=== PATIENT | female | born 1945 | race Caucasian/White ===

== ENCOUNTER 2018-06-05 10:26 | Emergency (ER) | payer OTHER, SELFPAY ==
[2018-06-05] VITALS (45 sets, daily range): BP systolic 89–183; BP diastolic 52–142; PULSE 79–95; RESP 12–24; TEMP 36.4–36.5; O2SAT 96–99
--- NOTE | 2018-06-05 10:34 | DI.COMBO_ITS ---
SYMPTOMS/DIAGNOSIS: CONFUSION, FALL, RT SIDED FACIAL DROOP, FATIGUE, COUGH, CRACKLES BASES AP AND LATERAL CHEST: There are no prior comparison exams. The heart size is normal. The aorta is mildly tortuous. The lungs appear clear. IMPRESSION: Negative chest x-ray. NONCONTRAST HEAD CT: Comparison is made with [id number]. There is no significant atrophy. There are old right basal ganglia lacunar infarcts. There is decreased attenuation in the white matter consistent with small vessel disease. No acute infarct, hemorrhage or mass is seen. There is no evidence of skull fracture. The sinuses and mastoid air cells appear clear. The orbits are unremarkable. IMPRESSION: Small vessel disease. No acute abnormality. NONCONTRAST HEAD CT AT 2:50 P.M. Comparison is made with the exam performed earlier the same day. Old right basal ganglia lacunar infarcts and white matter changes of small vessel disease are again noted. No acute infarct or acute hemorrhage is visible. The ventricles are unchanged in size. IMPRESSION: No acute abnormality.
--- NOTE | 2018-06-05 10:36 | W.ED.GENAD ---
Discharge Plan Disposition Patient Disposition: RAFIA WISDOM ([facility]) Condition: Stable Discharge Details Chief Complaint: Diabetes Clinical Impression: Acute non-ST elevation myocardial infarction (NSTEMI), Acute kidney injury Primary Care Provider: Edna Cortez ED Provider: Darci Reyes Home Meds and New Rx's Prescriptions: No Action Levemir U-100 Insulin 100 UNIT/1 ML solution 40 u SQ HS RF: 0 alum-mag hydroxide-simeth [Mag-Al Plus] 30 ML suspension 30 ml PO TID Qty: 1 RF: 2 esomeprazole magnesium 40 mg Capsule,Delayed Release(Dr/Ec) 1 cap PO DAILY RF: 0 Medical Decision Making This is a 73-year-old female who presents for 4 days of weakness. She has not been taking her insulin at home, she has not been eating and drinking well. She has been feeling notably fatigued. Past medical history is significant for type 2 diabetes taking 4 units of Lantus daily, as well as an intracranial subarachnoid hemorrhage in the past. Physical exam is relatively benign. Mucous membranes are dry and she does look dehydrated. Accu-Chek is elevated. No neurologic deficits at this time, no complaint of headache, no signs of impingement. Clinical exam is clinically inconsistent with intracranial bleed or severe stroke with no neurologic deficits. We will rehydrate the patient, evaluate for a potential source of her fatigue including a cardiac etiology or infectious etiology. We will rehydrate the patient reassess. 12:22 PM The patient's troponin is notably elevated, at 22. She developed has a mild elevation in her white count, renal function is slightly reduced with a creatinine of 1.79. She does show evidence of mild to moderate dehydration. We will rehydrate still. TSH is normal. EKG shows no evidence of STEMI. Notable Q waves in lead II, III, and aVF. I have concern that the patient has suffered a myocardial infarction in the recent past, I feel that this is the main reason for her fatigue. I did contact [facility] [place] and they do not have any room at this time. We did contact the [facility], I discussed the case with Dr. Solares the commercial airline pilot. He agrees with the assessment and plan. CT scan of the head is negative for any evidence of bleed or acute process. He does recommend starting heparin. We will heparinized the patient at this time. Patient will be transferred to the [facility] for definitive cardiology care. I have extensively reviewed the treatment plan with the patient. I have addressed all patient concerns at this time. I have also discussed the plan with the admitting physician and they agree with the current assessment and plan and have agreed to assume responsibility for the patient. All parties demonstrate verbal understanding and agreement with our assessment and plan at this time. EKG 10: 53 Rate 80, EKG interpretation is atrial flutter from the machine however on my review it appears to be sinus rhythm. Artifact is noted. Inverted T waves in V3 through V6, no ST depressions greater than 1 mm. No reciprocal elevations. Notable Q waves in lead II, III, and aVF. Review of EKG from 08/28/15 demonstrates similarly inverted T waves with mild less than 1 mm depression in V3 V4 V5 and V6. EKG 12: 12 Rate 86, sinus rhythm, WV 130, QTc 471, QRS 100, inverted T waves in V3 through V6. No significant ST depression. No ST elevation. Consistent Q waves in lead II, III, and aVF. FINDINGS: Brain: No evidence for acute hemorrhage. Lacunar change right thalamus, nonacute. Cerebral volume loss noted. Scattered areas of decreased attenuation in the deep periventricular white matter consistent with small vessel ischemic change. Ventricles: Normal. No ventriculomegaly. Bones/joints: Normal. No acute fracture. Sinuses: Normal as visualized. No acute sinusitis. Mastoid air cells: Normal as visualized. No mastoid effusion. Soft tissues: Normal. IMPRESSION: Senescent changes noted. No acute intracranial abnormality. COMPARISON: No relevant prior studies available. FINDINGS: Bones/joints: No evidence of fracture or dislocation. No joint effusion. Soft tissues: Mild soft tissue swelling over the lateral malleolus. IMPRESSION: No fracture or dislocation. Thank you for allowing us to participate in the care of your patient. Dictated and Authenticated by: Mariama Gamez MD HPI General Date/Time Provider Initiated Documentation: 06/05/18 10:34. HPI Narrative: This is a 73-year-old female with a past medical history of diabetes type 2, intracranial bleed 5-6 years ago, for which she takes insulin/Levemir 40 units daily, as well as Arredondo's esophagus, who presents today for fatigue, weakness, medical noncompliance. She has been brought in by a neighbor today. Per the patient and the neighbor the patient has not been taking her insulin, or eating or drinking well for the last 4-5 days. She has been notably fatigued. She has had a few falls over the last few days as well secondary to weakness and fatigue. She states that she still has her insulin she just has not been taking it, and cannot give a specific with reason why. She denies any fever or chills. She does admit to about cough. She denies any vomiting or diarrhea. She denies any headache, vision changes, numbness, tingling, chest pain, shortness of breath, neck pain, or abdominal pain. She denies any urinary frequency or dysuria. She has no other complaints at this time. No other modifying factors. Related Data Home Medications Medication Instructions Recorded Confirmed Levemir U-100 Insulin 40 u SQ HS 01/23/16 06/05/18 alum-mag hydroxide-simeth [Mag-Al 30 ml PO TID #1 btl 02/03/16 06/05/18 Plus] esomeprazole magnesium 1 cap PO DAILY 06/05/18 06/05/18 Previous Rx's Medication Instructions Recorded alum-mag hydroxide-simeth [Mag-Al 30 ml PO TID #1 btl 02/03/16 Plus] Allergies Allergy/AdvReac Type Severity Reaction Status Date / Time No Known Allergies Allergy Unverified 06/05/18 10:44 Review of Systems Review of Systems All systems reviewed & are unremarkable except as noted in HPI and below PFSH Medical History Cataracts, bilateral Diabetes Dysphagia Legally blind in right eye, as defined in [place] Subarachnoid hemorrhage retinal issue Surgical History Appendectomy EGD - IV Sedation (02/03/16) Extraction of cataract Social History Smoking/Tobacco Use Status: Never Exam Narrative Exam Narrative: 1.Const: Cachectic, thin, elderly appearing 2.Eyes: PERRL, no conjunctival injection, and symmetrical lids. 3.ENT: Atraumatic external nose and ears. Moist MM. Neck: Symmetric, trachea midline, No thyromegaly. There is no evidence of raccoon eyes, barrios sign, CSF rhinorrhea, mastoid tenderness, cranial crepitus, hemotympanum, exophthalmos, or hyphema. Patient demonstrates intact dentition with no signs of tooth avulsion or fracture, no signs of jaw deformity, no evidence of a LeFort's fracture, with an intact palate, nose and orbital region. There is no evidence of a nasal septal hematoma. No proptosis. Jaw closes symmetrically. Airway is clear. Patient demonstrates good movement of cervical neck. There is no nuchal rigidity, no nuchal tenderness. Patient is able to flex the neck without any difficulty or significant pain. Negative Kernig's and Brudzinski sign. 4.CVS: +S1/S2, No murmurs or gallops. Peripheral pulses 2+ and equal in all extremities. Brisk capillary refill in all extremities. 5.RESP: Unlabored respiratory effort. Minimal crackles in the bases bilaterally. No rhonchi or wheezes. 6.GI: Soft, Nontender/Nondistended, No hepatosplenomegaly. No guarding or rebound. 7.MSK: Normocephalic/Atraumatic, Extremities w/o deformity or ttp No cyanosis or clubbing, Normal movement of all extremities. No midline tenderness to palpation over the CTLS spine. Normal ROM in flexion, extension, side bend, and rotation. Patient has +5 out of 5 strength in the lower extremities in dorsiflexion and plantarflexion, knee flexion and extension, hip flexion and extension. There is +2 over 2 dorsalis pedis pulses bilaterally. There is normal sensation to the skin with light touch at the foot, knee, and hip. Normal saddle sensation. Good sensation over the deep sural nerve area bilaterally. Rectal exam deferred. Reflexes are +2 over 4 in the patellar reflex bilaterally. +5 out of 5 strength in the medial, ulnar, radial nerve distribution bilaterally in the hands as well as intact light touch sensation to these dermatomes on the hands 8.Skin: Warm, Dry. No rashes or lesions. 9.Neuro: mower mechanic II-XII grossly intact. Sensation grossly intact, no focal neurologic deficits. All 6 cardinal planes of vision are fully intact. No evidence of rotatory or vertical nystagmus. The patient demonstrated a normal [id number], good dexterity. There was no evidence of dysdiadochokinesia. Patient was able to ambulate without difficulty. There was no wide-based gait. Romberg, and jprw-qz-hzas are both normal on testing. Sensation was intact bilaterally as well as muscle strength bilaterally for all extremities. Patient was able to verbalize butter cup with no slurring, or miss pronunciation. 10.Psych: (AAO) x3. Appropriate mood and affect
--- NOTE | 2018-06-05 10:42 | ED.GENADUL_ITS ---
Discharge Plan Disposition Patient Disposition: RAFIA WISDOM ([facility]) Condition: Stable Discharge Details Chief Complaint: Diabetes Clinical Impression: Acute non-ST elevation myocardial infarction (NSTEMI), Acute kidney injury Primary Care Provider: Edna Cortez ED Provider: Darci Reyes Home Meds and New Rx's Prescriptions: No Action Levemir U-100 Insulin 100 UNIT/1 ML solution 40 u SQ HS RF: 0 alum-mag hydroxide-simeth [Mag-Al Plus] 30 ML suspension 30 ml PO TID Qty: 1 RF: 2 esomeprazole magnesium 40 mg Capsule,Delayed Release(Dr/Ec) 1 cap PO DAILY RF: 0 Medical Decision Making This is a 73-year-old female who presents for 4 days of weakness. She has not been taking her insulin at home, she has not been eating and drinking well. She has been feeling notably fatigued. Past medical history is significant for type 2 diabetes taking 4 units of Lantus daily, as well as an intracranial subarachnoid hemorrhage in the past. Physical exam is relatively benign. Mucous membranes are dry and she does look dehydrated. Accu-Chek is elevated. No neurologic deficits at this time, no complaint of headache, no signs of impingement. Clinical exam is clinically inconsistent with intracranial bleed or severe stroke with no neurologic deficits. We will rehydrate the patient, evaluate for a potential source of her fatigue including a cardiac etiology or infectious etiology. We will rehydrate the patient reassess. 12:22 PM The patient's troponin is notably elevated, at 22. She developed has a mild elevation in her white count, renal function is slightly reduced with a creatinine of 1.79. She does show evidence of mild to moderate dehydration. We will rehydrate still. TSH is normal. EKG shows no evidence of STEMI. Notable Q waves in lead II, III, and aVF. I have concern that the patient has suffered a myocardial infarction in the recent past, I feel that this is the main reason for her fatigue. I did contact [facility] and they do not have any room at this time. We did contact the [facility], I discussed the case with Dr. Solares the roof foreman. He agrees with the assessment and plan. CT scan of the head is negative for any evidence of bleed or acute process. He does recommend starting heparin. We will heparinized the patient at this time. Patient will be transferred to the [facility] for definitive cardiology care. I have extensively reviewed the treatment plan with the patient. I have addressed all patient concerns at this time. I have also discussed the plan with the admitting physician and they agree with the current assessment and plan and have agreed to assume responsibility for the patient. All parties demonstrate verbal understanding and agreement with our assessment and plan at this time. EKG 10: 53 Rate 80, EKG interpretation is atrial flutter from the machine however on my review it appears to be sinus rhythm. Artifact is noted. Inverted T waves in V3 through V6, no ST depressions greater than 1 mm. No reciprocal elevations. Notable Q waves in lead II, III, and aVF. Review of EKG from 08/28/15 demonstrates similarly inverted T waves with mild less than 1 mm depression in V3 V4 V5 and V6. EKG 12: 12 Rate 86, sinus rhythm, MN 130, QTc 471, QRS 100, inverted T waves in V3 through V6. No significant ST depression. No ST elevation. Consistent Q waves in lead II, III, and aVF. FINDINGS: Brain: No evidence for acute hemorrhage. Lacunar change right thalamus, nonacute . Cerebral volume loss noted. Scattered areas of decreased attenuation in the deep periventricular white matter consistent with small vessel ischemic change. Ventricles: Normal. No ventriculomegaly. Bones/joints: Normal. No acute fracture. Sinuses: Normal as visualized. No acute sinusitis. Mastoid air cells: Normal as visualized. No mastoid effusion. Soft tissues: Normal. IMPRESSION: Senescent changes noted. No acute intracranial abnormality. COMPARISON: No relevant prior studies available. FINDINGS: Bones/joints: No evidence of fracture or dislocation. No joint effusion. Soft tissues: Mild soft tissue swelling over the lateral malleolus. IMPRESSION: No fracture or dislocation. Thank you for allowing us to participate in the care of your patient. Dictated and Authenticated by: Mariama Gamez MD HPI General Date/Time Provider Initiated Documentation: 06/05/18 10:34 . HPI Narrative: This is a 73-year-old female with a past medical history of diabetes type 2, intracranial bleed 5-6 years ago, for which she takes insulin/Levemir 40 units daily, as well as Arredondo's esophagus, who presents today for fatigue, weakness, medical noncompliance. She has been brought in by a neighbor today. Per the patient and the neighbor the patient has not been taking her insulin, or eating or drinking well for the last 4-5 days. She has been notably fatigued. She has had a few falls over the last few days as well secondary to weakness and fatigue. She states that she still has her insulin she just has not been taking it, and cannot give a specific with reason why. She denies any fever or chills. She does admit to about cough. She denies any vomiting or diarrhea. She denies any headache, vision changes, numbness, tingling, chest pain, shortness of breath, neck pain, or abdominal pain. She denies any urinary frequency or dysuria. She has no other complaints at this time. No other modifying factors. Related Data Home Medications Medication Instructions Recorded Confirmed Levemir U-100 Insulin 40 u SQ HS 01/23/16 06/05/18 alum-mag hydroxide-simeth [Mag-Al 30 ml PO TID #1 btl 02/03/16 06/05/18 Plus] esomeprazole magnesium 1 cap PO DAILY 06/05/18 06/05/18 Previous Rx's Medication Instructions Recorded alum-mag hydroxide-simeth [Mag-Al 30 ml PO TID #1 btl 02/03/16 Plus] Allergies Allergy/AdvReac Type Severity Reaction Status Date / Time No Known Allergies Allergy Unverified 06/05/18 10:44 Review of Systems Review of Systems All systems reviewed & are unremarkable except as noted in HPI and below PFSH Medical History Cataracts, bilateral Diabetes Dysphagia Legally blind in right eye, as defined in [place] Subarachnoid hemorrhage retinal issue Surgical History Appendectomy EGD - IV Sedation (02/03/16) Extraction of cataract Social History Smoking/Tobacco Use Status: Never Exam Narrative Exam Narrative: 1.Const: Cachectic, thin, elderly appearing 2.Eyes: PERRL, no conjunctival injection, and symmetrical lids. 3.ENT: Atraumatic external nose and ears. Moist MM. Neck: Symmetric, trachea midline, No thyromegaly. There is no evidence of raccoon eyes, barrios sign, CSF rhinorrhea, mastoid tenderness, cranial crepitus, hemotympanum, exophthalmos, or hyphema. Patient demonstrates intact dentition with no signs of tooth avulsion or fracture, no signs of jaw deformity, no evidence of a LeFort's fracture, with an intact palate, nose and orbital region. There is no evidence of a nasal septal hematoma. No proptosis. Jaw closes symmetrically. Airway is clear. Patient demonstrates good movement of cervical neck. There is no nuchal rigidity, no nuchal tenderness. Patient is able to flex the neck without any difficulty or significant pain. Negative Kernig's and Brudzinski sign. 4.CVS: +S1/S2, No murmurs or gallops. Peripheral pulses 2+ and equal in all extremities. Brisk capillary refill in all extremities. 5.RESP: Unlabored respiratory effort. Minimal crackles in the bases bilaterally. No rhonchi or wheezes. 6.GI: Soft, Nontender/Nondistended, No hepatosplenomegaly. No guarding or rebound. 7.MSK: Normocephalic/Atraumatic, Extremities w/o deformity or ttp No cyanosis or clubbing, Normal movement of all extremities. No midline tenderness to palpation over the CTLS spine. Normal ROM in flexion, extension, side bend, and rotation. Patient has +5 out of 5 strength in the lower extremities in dorsiflexion and plantarflexion, knee flexion and extension, hip flexion and extension. There is +2 over 2 dorsalis pedis pulses bilaterally. There is normal sensation to the skin with light touch at the foot, knee, and hip. Normal saddle sensation. Good sensation over the deep sural nerve area bilaterally. Rectal exam deferred. Reflexes are +2 over 4 in the patellar reflex bilaterally. +5 out of 5 strength in the medial, ulnar, radial nerve distribution bilaterally in the hands as well as intact light touch sensation to these dermatomes on the hands 8.Skin: Warm, Dry. No rashes or lesions. 9.Neuro: media marketing coordinator II-XII grossly intact. Sensation grossly intact, no focal neurologic deficits. All 6 cardinal planes of vision are fully intact. No evidence of rotatory or vertical nystagmus. The patient demonstrated a normal [id number]-qdzctb, good dexterity. There was no evidence of dysdiadochokinesia. Patient was able to ambulate without difficulty. There was no wide-based gait. Romberg, and zfjz-[id number]-urfn are both normal on testing. Sensation was intact bilaterally as well as muscle strength bilaterally for all extremities. Patient was able to verbalize butter cup with no slurring, or miss pronunciation. 10.Psych: (AAO) x3. Appropriate mood and affect
[2018-06-05] MEDS: Normal Saline 1,000 ML 1000 ML IV (10:45)
[2018-06-05 10:56] LABS: Abs Immature Grans 0.03 k/cumm (0.0-0.09); Absolute Lymphocyte Count 1.07 k/cumm (1.2-3.4); Basophils % 0.1; HCT 46.2 % (36.0-46.0); HGB 16.1 g/dL (12.0-15.5); Immature Grans % 0.2; Lymphocytes % 6.6; Mean Corp. HGB Concentration 34.8 g/dL (32.0-36.0); Mean Corpuscular Hemoglobin 32.3 pg (27.0-33.0); Mean Corpuscular Volume 92.6 fL (80-95); Mean Platelet Volume 12.1 fL (8.0-11.0); Monocytes % 9.3; Neutrophils % 83.8; RBC 4.99 m/cumm (4.00-5.20); White Blood Cell Count 16.27 k/cumm (4.4-10.8)
[2018-06-05 10:59] LABS: Absolute Basophil Count 0.02 k/cumm (0.0-0.2); Absolute Monocyte Count 1.51 k/cumm (0.11-0.7); Absolute Neutrophil Count 13.63 k/cumm (1.2-6.7)
[2018-06-05 11:12] LABS: ALT 39 U/L (12-78); AST 86 U/L (15-37); Albumin 3.7 g/dL (3.4-5.0); Alkaline Phosphatase 50 U/L (46-116); Anion Gap 10.3 mmol/L (3-11); BUN 70 mg/dL (7-18); Bilirubin, Total 1.2 mg/dL (0.2-1.0); CO2 29.7 mmol/L (21.0-32.0); CREATININE 1.79 mg/dL (0.55-1.02); Calcium 10.1 mg/dL (8.5-10.1); Chloride 95 mmol/L (98-107); Estimated GFR 27.68 (mL/min/1.73m2); Glucose 355 mg/dL (70-100); Sodium 135 mmol/L (136-145)
[2018-06-05 11:19] LABS: Platelet Count 328 x1000/uL (130-400); TSH (W/Ref FT4) 1.54 uIU/mL (0.358-3.74)
[2018-06-05 11:20] LABS: Diff Comment Manual Differential; RBC Morphology Normal; Troponin I 22.95 ng/mL (0.00-0.06)
--- NOTE | 2018-06-05 12:10 | DI.VRAD_ITS ---
EXAM: CT Head Without Contrast EXAM DATE/TIME: 06/05/2018 10:36 AM CLINICAL HISTORY: 73 years old, female; Signs and symptoms; Other: Confusion, recent fall TECHNIQUE: Axial computed tomography images of the head/brain without contrast. All CT scans at this facility use at least one of these dose optimization techniques: automated exposure control; mA and/or kV adjustment per patient size (includes targeted exams where dose is matched to clinical indication); or iterative reconstruction. Coronal and sagittal reformatted images were created and reviewed. COMPARISON: CT HEAD WITHOUT CONTRAST 08/28/2015 3:44 PM FINDINGS: Brain: No evidence for acute hemorrhage. Lacunar change right thalamus, nonacute. Cerebral volume loss noted. Scattered areas of decreased attenuation in the deep periventricular white matter consistent with small vessel ischemic change. Ventricles: Normal. No ventriculomegaly. Bones/joints: Normal. No acute fracture. Sinuses: Normal as visualized. No acute sinusitis. Mastoid air cells: Normal as visualized. No mastoid effusion. Soft tissues: Normal. IMPRESSION: Senescent changes noted. No acute intracranial abnormality. COMMENT: Preliminary interpretation is based on receipt of 342 image(s). A final report will be issued subsequently. Dictated and Authenticated by: Clara Patiño MD. Ordering:RUBEN Bejarano MD
--- NOTE | 2018-06-05 12:13 | DI.VRAD_ITS ---
EXAM: XR Chest, 2 Views EXAM DATE/TIME: 06/05/2018 10:36 AM CLINICAL HISTORY: 73 years old, female; Signs and symptoms; Other: Fatique, cough, crackles in basees TECHNIQUE: XR of the chest, 2 views. COMPARISON: No relevant prior studies available. FINDINGS: Lungs: The lungs are hyperaerated and hyperlucent consistent with COPD. There is increase in the retrosternal airspace Pleural space: Unremarkable. No pleural effusion. No pneumothorax. Heart/Mediastinum: Heart size upper limits of normal. Vasculature: Mild aortic ectasia and atherosclerotic change. Bones/joints: Mild thoracic spondylosis. IMPRESSION: COPD without evidence for acute abnormality. COMMENT: Preliminary interpretation is based on receipt of 2 image(s). A final report will be issued subsequently. Dictated and Authenticated by: Clara Patiño MD. Ordering:RUBEN Bejarano MD
[2018-06-05] MEDS: Metoclopramide 10 MG/2 ML VIAL IVP (13:25)
[2018-06-05] MEDS: Aspirin 81 MG CHEW 324 MG CH (13:30)
[2018-06-05 14:20] LABS: INR 1.1 (0.9-1.1); PTT Activated 24.1 sec (21.0-31.4); Prothrombin Time 10.7 sec (9.3-11.0)
--- NOTE | 2018-06-05 15:00 | PDOC.ERCMPRO ---
Care Management Progress Note CM met with Suni at provider request. Suni reported feeling confident in managing her care needs in coordination with her PCP; Edna Cortez in the community. 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 KHANH agreed to connect with [facility] to request support in this avenue. CM faxed referral to [facility]: Niurka Herring for coordination support.
--- NOTE | 2018-06-05 15:03 | CMPROGNOTE_ITS ---
Care Management Progress Note CM met with Suni at provider request. Suni reported feeling confident in managing her care needs in coordination with her PCP; Edna Cortez in the community. 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 KHANH agreed to connect with [facility] to request support in this avenue. CM faxed referral to [facility]: Niurka Herring for coordination support.
--- NOTE | 2018-06-05 15:08 | DI.VRAD_ITS ---
EXAM: CT Head Without Contrast EXAM DATE/TIME: 06/05/2018 2:45 PM CLINICAL HISTORY: 73 years old, female; Signs and symptoms; Other: Right sided facial droop TECHNIQUE: Axial computed tomography images of the head/brain without contrast. All CT scans at this facility use at least one of these dose optimization techniques: automated exposure control; mA and/or kV adjustment per patient size (includes targeted exams where dose is matched to clinical indication); or iterative reconstruction. Coronal and sagittal reformatted images were created and reviewed. STROKE PROTOCOL was implemented. COMPARISON: CT Private^HEAD ROUTINE (Adult) 06/05/2018 11:37 AM FINDINGS: Brain: No evidence for acute intracranial hemorrhage. Cerebral volume loss noted. Scattered areas of decreased attenuation in the deep periventricular white matter consistent with small vessel ischemic change. Lacunar change right thalamus again seen. Ventricles: Normal. No ventriculomegaly. Bones/joints: Normal. No acute fracture. Sinuses: Normal as visualized. No acute sinusitis. Mastoid air cells: Normal as visualized. No mastoid effusion. Soft tissues: Normal. IMPRESSION: Senescent changes noted. No acute intracranial abnormality. COMMENT: Preliminary interpretation is based on receipt of 341 image(s). A final report will be issued subsequently. Dictated and Authenticated by: Clara Patiño MD. Ordering:RUBEN Bejarano MD
== END 2018-06-05 15:13 | disposition short-term general hospital (02) ==
PROVIDERS: Emergency Provider Student in an Organized Health Care Education/Training Program; PCP Nurse Practitioner
DX: I21.4 Non-ST elevation (NSTEMI) myocardial infarction (principal); N17.9 Acute kidney failure, unspecified; E11.9 Type 2 diabetes mellitus without complications; Z79.4 Long term (current) use of insulin
CPT/HCPCS: 36415; 36416; 80053; 82962; 93005; 96361; 96365; 96375; 99283; 70450; 71046; 81003; 84443; 84484; 85025; 85610; 85730; 93010; 99285; J2765

== ENCOUNTER 2018-06-15 13:05 | Outpatient (REF) | payer OTHER, SELFPAY ==
[2018-06-15 20:33] LABS: ALT 25 U/L (12-78); AST 14 U/L (15-37); Albumin 3.1 g/dL (3.4-5.0); Alkaline Phosphatase 40 U/L (46-116); Anion Gap 8.1 mmol/L (3-11); BUN 28 mg/dL (7-18); Bilirubin, Total 0.3 mg/dL (0.2-1.0); CO2 27.9 mmol/L (21.0-32.0); CREATININE 0.91 mg/dL (0.55-1.02); Calcium 9.1 mg/dL (8.5-10.1); Chloride 104 mmol/L (98-107); Glucose 179 mg/dL (70-100); Potassium 4.5 mmol/L (3.5-5.1); Sodium 140 mmol/L (136-145); Total Protein 6.4 g/dL (6.4-8.2)
== END 2018-06-15 13:25 ==
LOC: NCHCN 13:05
PROVIDERS: PCP Nurse Practitioner; Visit Provider Nurse Practitioner
DX: I25.2 Old myocardial infarction (principal)
CPT/HCPCS: 80053

== ENCOUNTER → 2018-09-14 09:17 | Outpatient (BNVA) | payer OTHER, SELFPAY | PROVIDERS: PCP Nurse Practitioner; Referring Provider Nurse Practitioner; Visit Provider Psychiatry & Neurology Neurology | DX: R69 Illness, unspecified (principal) ==

== ENCOUNTER 2018-10-13 11:52 | Emergency (ER) | payer OTHER, SELFPAY ==
[2018-10-13] VITALS (34 sets, daily range): BP systolic 128–204; BP diastolic 52–130; PULSE 69–92; RESP 13–26; TEMP 36.6; O2SAT 95–99
--- NOTE | 2018-10-13 12:14 | W.ED.GENAD ---
Discharge Plan Disposition Patient Disposition: [facility] Condition: Stable Discharge Details Chief Complaint: Trauma Clinical Impression: UTI (urinary tract infection), Altered mental status, Laceration of lip, Dental trauma, Abnormal ECG Primary Care Provider: Edna Cortez ED Provider: June Cool Home Meds and New Rx's Prescriptions: No Action metformin 500 mg tablet 500 mg PO BID RF: 0 atorvastatin 80 mg tablet 80 mg PO DAILY RF: 0 esomeprazole magnesium [Nexium] 40 mg capsule,delayed release(DR/EC) 40 mg PO DAILY RF: 0 aspirin 81 mg tablet 81 mg PO DAILY RF: 0 Discharge Data Discharge Date/Time-TO BE ENTERED AT DEPARTURE: 10/13/18 20:27 Medical Decision Making 73-year-old female with a history of diabetes who presents status post unwitnessed fall. Blood pressure mildly hypertensive, otherwise vitals within normal limits. Patient noted to have 2 upper lip lacerations, one extensive near the vermilion border. Dental trauma noted to #9 and #10 teeth. No obvious head, neck, chest, abdomen, back or extremity trauma. Lungs clear to auscultation. Abdomen soft nontender. Moving all extremities. Tetanus up-to-date. Patient is oriented to person and not place or time. Patient cannot recall the events of today. Due to unknown history and whether patient has dementia or if this is an acute altered mental status due to an acute medical cause, will place an IV, bolus IV fluids, labs, urinalysis, CT head/cervical spine and facial bones. Sister now present here and states that patient is usually oriented x3. Patient appears more lucid but still not able to answer questions regarding fall. EKG notes a rate of 72, sinus, T wave inversion in V4 through V6 which is been seen in previous, but with new T wave inversion and 2 3 and aVF. 1300 --CTs reviewed with radiologist - unclear whether there is an upper maxilla fracture. Will push images to [facility] plastics or ENT. CT head and cervical spine negative. Chest x-ray and pelvis x-ray negative. 1343 --discussed with [facility] plastics who reviewed CT images -there is noted a longitudinal fracture #10 and impaction of #9. No other obvious additional fractures noted. No indication for emergent transfer and patient can follow-up with her dentist as an outpatient. They can also follow-up with patient in 1 week. Recommend Augmentin for antibiotic coverage. 1430 --labs reviewed. White blood cell count 6. Magnesium 1.3. Troponin negative. Urinalysis notes UTI. Will give a dose of Rocephin. 1500 --patient seems more oriented at this time, but with confusion on arrival, UTI, and EKG changes, will admit for concern for possible syncope. Discussed with hospitalist, no beds available here. 1550 --discussed with [facility] -no cardiology or echocardiogram capability available so will not accept patient. 1645 --discussed with [facility] Dr. Desir -accepts patient for transfer. Requesting second troponin. If negative, can transfer. 1800 --second troponin negative. Due to high acuity and high census in ED, general surgery Dr. Olivares sutured lip laceration. Medical Records Medical records reviewed: Yes I reviewed the patient's medical records. Imaging Data Radiologic Study: Radiologist's impression: SEMI-ERECT AP AND LATERAL CHEST: The lungs are well expanded and free of infiltrate. There is no pleural effusion. The cardiovascular structures are intact. SUMMARY: No evidence of acute cardiopulmonary disease. AP PELVIS: No pelvic or hip fracture is demonstrated. CERVICAL SPINE CT: The study was carried out according to the usual protocol. The vertebral bodies are intact. Degenerative changes involving the mid and lower cervical spine are evident. The neural canal is widely patent throughout. The posterior elements are intact. Facet joint DJD is noted. The odontoid is intact and is closely applied to the anterior arch of C 1. The prevertebral soft tissues are unremarkable. SUMMARY: No evidence of a C spine fracture or dislocation. CRANIAL CT: A noncontrast enhanced examination was carried out. Atrophic changes consistent with age are demonstrated. There is no evidence of an intra or extra-axial hemorrhage. Regions of diminished absorption in the frontoparietal white matter would be consistent with small vessel disease. The ventricles are unremarkable. There is no evidence of a skull fracture. The paranasal sinuses are intact. There is no evidence of a mastoid effusion. SUMMARY: No evidence of an acute intracranial abnormality. CT OF THE FACE: There is no definite facial bone fracture. There is a question regarding a possibility of a fracture involving the base of the left nasal bone and in a left paramedian position in the maxilla possibly involving the adjacent tooth. There are mild inflammatory changes involving the maxillary antra. The orbits are intact. SUMMARY: The facial bones are unremarkable. There is a question regarding a nondisplaced fracture of the maxilla involving the adjacent tooth. Lab Data Lab results reviewed: Yes I reviewed the patient's lab results. 10/13/18 13:42 Urine - Reflex from Ua Urine Culture - Pending Laboratory Tests Range/Units 10/13/18 10/13/18 10/13/18 12:30 12:30 12:30 WBC (4.4-10.8) k/cumm 6.16 RBC (4.00-5.20) m/cumm 3.97 L Hgb (12.0-15.5) g/dL 12.6 Hct (36.0-46.0) % 38.2 MCV (80-95) fL 96.2 H MCH (27.0-33.0) pg 31.7 MCHC (32.0-36.0) g/dL 33.0 RDW (11.7-14.6) % 12.1 Plt Count (130-400) x1000/uL 179 MPV (8.0-11.0) fL 12.0 H Immature Gran % 0.2 Neutrophils % 74.2 Lymphocytes % 14.4 Monocytes % 7.0 Eosinophils % 3.6 Basophils % 0.6 Absolute Neutrophils (1.2-6.7) k/cumm 4.57 Absolute Lymphocytes (1.2-3.4) k/cumm 0.89 L Absolute Monocytes (0.11-0.7) k/cumm 0.43 Absolute Eosinophils (0.0-0.7) k/cumm 0.22 Absolute Basophils (0.0-0.2) k/cumm 0.04 PT (9.3-11.0) sec 10.5 INR (0.9-1.1) 1.1 APTT (21.0-31.4) sec 24.3 Sodium (136-145) mmol/L 141 Potassium (3.5-5.1) mmol/L 4.7 Chloride (98-107) mmol/L 104 Carbon Dioxide (21.0-32.0) mmol/L 27.3 Anion Gap (3-11) mmol/L 9.7 BUN (7-18) mg/dL 23 H Creatinine (0.55-1.02) mg/dL 0.81 Estimated GFR/1.73 m2 (mL/min/1.73m2) >= 60.00 Glucose (70-100) mg/dL 177 H Calcium (8.5-10.1) mg/dL 9.7 Magnesium (1.8-2.4) mg/dL 1.3 L Total Bilirubin (0.2-1.0) mg/dL 0.6 AST (15-37) U/L 17 ALT (12-78) U/L 27 Alkaline Phosphatase (46-116) U/L 32 L Creatine Kinase (26-192) U/L Troponin I (0.00-0.06) ng/mL < 0.02 Total Protein (6.4-8.2) g/dL 7.2 Albumin (3.4-5.0) g/dL 3.7 Urine Color (Yellow) Urine Clarity Urine pH (5-8) Ur Specific [place] (1.005-1.025) Urine Protein (Negative) mg/dL Urine Ketones (Negative) mg/dL Urine Blood (Negative) Urine Nitrite (Negative) Urine Bilirubin (Negative) Urine Urobilinogen (Up TO 0.2) EU/dL Ur Leukocyte Esterase (Negative) Urine RBC (0-2) Urine WBC (0-5) HPF Ur Epithelial Cells (Negative) HPF Urine Crystals (Negative) HPF Urine Bacteria (Negative) HPF Urine Casts (Negative) LPF Urine Mucus (Negative) Ur Culture Indicated? Urine Glucose (Negative) mg/dL Range/Units 10/13/18 10/13/18 12:30 13:42 WBC (4.4-10.8) k/cumm RBC (4.00-5.20) m/cumm Hgb (12.0-15.5) g/dL Hct (36.0-46.0) % MCV (80-95) fL MCH (27.0-33.0) pg MCHC (32.0-36.0) g/dL RDW (11.7-14.6) % Plt Count (130-400) x1000/uL MPV (8.0-11.0) fL Immature Gran % Neutrophils % Lymphocytes % Monocytes % Eosinophils % Basophils % Absolute Neutrophils (1.2-6.7) k/cumm Absolute Lymphocytes (1.2-3.4) k/cumm Absolute Monocytes (0.11-0.7) k/cumm Absolute Eosinophils (0.0-0.7) k/cumm Absolute Basophils (0.0-0.2) k/cumm PT (9.3-11.0) sec INR (0.9-1.1) APTT (21.0-31.4) sec Sodium (136-145) mmol/L Potassium (3.5-5.1) mmol/L Chloride (98-107) mmol/L Carbon Dioxide (21.0-32.0) mmol/L Anion Gap (3-11) mmol/L BUN (7-18) mg/dL Creatinine (0.55-1.02) mg/dL Estimated GFR/1.73 m2 (mL/min/1.73m2) Glucose (70-100) mg/dL Calcium (8.5-10.1) mg/dL Magnesium (1.8-2.4) mg/dL Total Bilirubin (0.2-1.0) mg/dL AST (15-37) U/L ALT (12-78) U/L Alkaline Phosphatase (46-116) U/L Creatine Kinase (26-192) U/L 70 Troponin I (0.00-0.06) ng/mL Total Protein (6.4-8.2) g/dL Albumin (3.4-5.0) g/dL Urine Color (Yellow) Yellow Urine Clarity Sl cloudy Urine pH (5-8) 7.0 Ur Specific [place] (1.005-1.025) 1.025 Urine Protein (Negative) mg/dL 100 H Urine Ketones (Negative) mg/dL 15 H Urine Blood (Negative) Small H Urine Nitrite (Negative) Negative Urine Bilirubin (Negative) Negative Urine Urobilinogen (Up TO 0.2) EU/dL 0.2 Ur Leukocyte Esterase (Negative) Moderate H Urine RBC (0-2) Negative Urine WBC (0-5) HPF >50 Ur Epithelial Cells (Negative) HPF Negative Urine Crystals (Negative) HPF Negative Urine Bacteria (Negative) HPF Many Urine Casts (Negative) LPF Negative Urine Mucus (Negative) Negative Ur Culture Indicated? Yes Urine Glucose (Negative) mg/dL Negative ECG Data Attestation: I personally reviewed and interpreted this ECG (s) as follows: Interpretation: Rate of 72, sinus, T wave inversion in 2, 3, aVF which is new, and T wave inversion in V4 through V6 which is seen in previous. No acute ST elevation or depression. QTc 414, QRS 100. HPI General Mode of arrival: EMS. Date/Time Provider Initiated Documentation: 10/13/18 12:01. Limitations to Documentation: altered mental status. Information obtained by: patient and EMS. HPI Narrative: Patient is a 73-year-old female with a history of diabetes who presents status post fall. EMS was called for a patient who sustained a fall, unknown how this happened. Patient appears confused and does not recall a fall. Patient cannot give any details regarding the events today. Patient does not know any of her medications. Patient noted to have lip laceration and dental trauma but she does not recall how this happened. She denies any other pain. She denies headache. Related Data Home Medications Medication Instructions Recorded Confirmed aspirin 81 mg tablet 81 mg PO DAILY 07/05/18 10/13/18 atorvastatin 80 mg tablet 80 mg PO DAILY 07/05/18 10/13/18 esomeprazole magnesium 40 mg 40 mg PO DAILY 07/05/18 10/13/18 capsule,delayed release metformin 500 mg tablet 500 mg PO BID tab 09/14/18 10/13/18 Allergies Allergy/AdvReac Type Severity Reaction Status Date / Time No Known Allergies Allergy Unverified 09/14/18 10:10 General Stated Complaint: Trauma SHARMIN: 2 Review of Systems Review of Systems All systems reviewed & are unremarkable except as noted in HPI and below Constitutional Reports as per HPI, Denies chills and Denies fever(s) Eyes Denies blurry vision ENT Denies dizziness, Denies sore throat and Denies throat swelling Cardiovascular Denies chest pain and Denies dyspnea Respiratory Denies cough and Denies dyspnea Gastrointestinal Denies abdominal pain, Denies diarrhea and Denies vomiting Genitourinary Denies hematuria and Denies dysuria Musculoskeletal Denies back pain and Denies numbness Integumentary/Breasts Denies lesions and Denies rash Neurologic Denies dizziness, Denies focal weakness and Denies numbness Allergic/Immunologic Denies throat swelling PFSH Medical History Fall (on) (from) other stairs and steps, initial encounter (Acute) Facial laceration (Acute) Cataracts, bilateral Diabetes Dysphagia Legally blind in right eye, as defined in [place] Subarachnoid hemorrhage retinal issue Surgical History Appendectomy EGD - IV Sedation (02/03/16) Extraction of cataract Social History Smoking/Tobacco Use Status: Never Alcohol Intake: never Drug use: Never Housing: apartment Do you feel safe at home: Yes Do you feel safe in your relationship?: Yes Exam Const General: cooperative and healthy appearing Orientation: alert and awake HENMT Head: normal to inspection Ears: hearing grossly normal bilaterally, external ears normal and TM's normal bilaterally General nose exam: external nose normal Face and sinus: normal facial exam Mouth: oral mucosae normal and other Mouth/tongue images: 1. 2 cm open deep laceration extending through and through intraorally. 2. 1 cm open laceration extending through dermis. Teeth and gingiva: dentition normal Teeth image: 1. #9 transverse dental fracture at mid tooth, appears only involving the enamel, no obvious dentin or pulp noted. #10 appears rotated, no obvious fracture to tooth. Throat: posterior oropharynx normal Eyes General: appearance normal, both eyes and all related structures Eyelids: eyelids normal Pupils: PERRL EOM: EOM intact bilaterally Neck Neck: normal visual inspection Lymphatic: no lymphadenopathy noted Chest Chest: normal inspection of the chest, normal palpation of entire chest wall and no tenderness Resp Effort & Inspection: normal respiratory effort and able to speak in complete sentences Auscultation: clear to auscultation bilaterally Cardio Rate: regular rate Rhythm: regular rhythm GI Inspection: normal to inspection Palpation: soft, not firm, no guarding, no hepatosplenomegaly, no masses and nontender Auscultation: normal bowel sounds Back/Spine/Pelvis Cervical Spine: No cervical spinal tenderness Thoracic/Lumbar Spine: thoracic and lumbar spine normal to inspection, No thoracic spinal tenderness and No lumbar spinal tenderness Skin General skin exam: no rashes or lesions noted Neuro General: alert and awake Cognition: normal cognition Speech: speech normal Gait: normal gait Motor: muscle tone normal throughout Sensory Exam: no sensory deficits noted Extrem General: normal to inspection, full ROM and normal capillary refill Psych Appearance: grossly normal Mental Status: mental status grossly normal Speech and Movement: speech and movement normal Affect: normal affect Thought Process: normal Course Vital Signs Temperature 97.9 F 10/13/18 12:00 Pulse 75 10/13/18 12:00 Respiratory Rate 18 10/13/18 12:00 Blood Pressure 150/88 H 10/13/18 12:00 Pulse Oximetry 98 10/13/18 12:00 Temperature 97.9 F 10/13/18 12:00 Temperature Source Skin 10/13/18 12:00 Pulse 75 10/13/18 12:00 Respiratory Rate 18 10/13/18 12:00 Blood Pressure 150/88 H 10/13/18 12:00 Blood Pressure Position Sitting 10/13/18 12:00 Pulse Oximetry 98 10/13/18 12:00 Oxygen Delivery Method Room Air 10/13/18 12:00 Oxygen Flow Rate 0 10/13/18 12:00
[2018-10-13 12:41] LABS: Abs Immature Grans 0.01 k/cumm (0.0-0.09); Absolute Basophil Count 0.04 k/cumm (0.0-0.2); Absolute Eosinophil Count 0.22 k/cumm (0.0-0.7); Absolute Lymphocyte Count 0.89 k/cumm (1.2-3.4); Absolute Monocyte Count 0.43 k/cumm (0.11-0.7); Absolute Neutrophil Count 4.57 k/cumm (1.2-6.7); Basophils % 0.6; Eosinophils % 3.6; HCT 38.2 % (36.0-46.0); HGB 12.6 g/dL (12.0-15.5); Immature Grans % 0.2; Lymphocytes % 14.4; Mean Corpuscular Hemoglobin 31.7 pg (27.0-33.0); Mean Corpuscular Volume 96.2 fL (80-95); Neutrophils % 74.2; Platelet Count 179 x1000/uL (130-400); RBC 3.97 m/cumm (4.00-5.20); RBC Distribution Width 12.1 % (11.7-14.6); White Blood Cell Count 6.16 k/cumm (4.4-10.8)
[2018-10-13 12:57] LABS: INR 1.1 (0.9-1.1); PTT Activated 24.3 sec (21.0-31.4); Prothrombin Time 10.5 sec (9.3-11.0)
[2018-10-13 12:58] LABS: Creatine Kinase 70 U/L (26-192)
[2018-10-13 12:59] LABS: ALT 27 U/L (12-78); AST 17 U/L (15-37); Albumin 3.7 g/dL (3.4-5.0); Alkaline Phosphatase 32 U/L (46-116); Anion Gap 9.7 mmol/L (3-11); BUN 23 mg/dL (7-18); Bilirubin, Total 0.6 mg/dL (0.2-1.0); CO2 27.3 mmol/L (21.0-32.0); CREATININE 0.81 mg/dL (0.55-1.02); Calcium 9.7 mg/dL (8.5-10.1); Chloride 104 mmol/L (98-107); Glucose 177 mg/dL (70-100); Magnesium 1.3 mg/dL (1.8-2.4); Potassium 4.7 mmol/L (3.5-5.1); Sodium 141 mmol/L (136-145); Total Protein 7.2 g/dL (6.4-8.2)
[2018-10-13 13:01] LABS: Troponin I < 0.02 ng/mL (0.00-0.06)
[2018-10-13 13:47] LABS: Bilirubin Negative (Negative); Blood Small (Negative); Clarity Sl Cloudy; Glucose Negative (Negative); Ketones 15 mg/dL (Negative); Leukocyte Esterase Moderate (Negative); Nitrite Negative (Negative); Specific Gravity 1.025 (1.005-1.025); Urobilinogen 0.2 EU/dL (Up TO 0.2)
[2018-10-13 14:09] LABS: Bacteria Many HPF (Negative); C & S Indicated? Yes; Casts Negative LPF (Negative); Crystals Negative HPF (Negative); Epithelial Cells Negative HPF (Negative); Mucus Negative (Negative); RBC Negative (0-2); WBC >50 HPF (0-5)
[2018-10-13] MEDS: cefTRIAXone 1 GM/50 ML BAG IVPB (16:00)
[2018-10-13 17:02] LABS: Troponin I < 0.02 ng/mL (0.00-0.06)
[2018-10-13] MEDS: Midazolam 2 MG/2 ML VIAL (19:05)
--- NOTE | 2018-10-13 21:47 | W.PM.OP ---
Date of service: 10/13/18 Time of Service: 21:48 Operative Note DATE OF PROCEDURE: 10/13/18 PRE-OP DIAGNOSIS: taumatic laceration POST-OP DIAGNOSIS: same PROCEDURE: repair 3 SURGEON: Vidhya Olivares ANESTHESIA: GETA ESTIMATED BLOOD LOSS: 2 PATHOLOGY: none sent COMPLICATIONS: None Patient was transported to: other Patient's condition: stable Procedure Description: dictated
--- NOTE | 2018-10-13 21:51 | SCONE_ITS ---
Date of service: 10/13/18 Time of Service: 21:49 Assessment and Plan (1) Facial laceration: Current visit: No Status: Acute Caring for Your Incision You?ll need to help care for your incision after surgery and certain medical procedures. To close an incision, your healthcare provider used stitches (sutures), special strips of surgical tape called Steri-Strips, surgical richard, or surgical skin glue. Follow the tips on this sheet to help stop bleeding, speed healing, and prevent infection of your incision. Types of incision closures ? Surgical stitches (sutures) are placed by sewing the edges of an incision together with surgical thread. Sutures are either absorbable or non-absorbable. Absorbable sutures break down in the body over time. Non-absorbable sutures need to be removed. ? Steri-Strips are made of sticky (adhesive) material to help hold the edges of an incision together. ? Surgical richard are made of steel or titanium. They are often used to close shallow incisions. They are not used on certain body areas, such as the face and hands. This is because these areas have nerves that are close to the surface. ? Skin glue is special liquid glue that forms a strong vazquez between the tis sues of an incision or cut (laceration). Skin glue is used to close minor incisions or cuts. It keeps moisture and bacteria from entering the cut or incision. Home care ? Always wash your hands before touching your incision. ? Keep the incision clean, dry, and out of water, keep the incision out of water. ? Do not to pick at the scabs. Scabs help protect the wound. ? You can take a shower in 24 hours and wash the incision with soap and water. Pat dry/don?t scrub. It?s OK to wash around the incision. But don?t spray water directly on it. ? Pat stitches dry if they get wet. Don't rub. ? Check the incision site daily for pain, redness, drainage, swelling, or separation of the incision edges. ? If there is a bandage (dressing) over the incision, leave the dressing in place until you are told to remove it or change it. Using clean hannds to change the dressing Follow-up care Follow up with your healthcare provider to ask how long sutures or richard should be left in place. Be sure to return for suture or staple removal as directed. If dissolving stitches were used in your mouth, these will not need to be removed. They should fall out or dissolve on their own. If tape closures were used, remove them yourself when your healthcare provider tells you to if they have not fallen off on their own. If skin glue was used to close your incision, the glue will wear off by itself. When to seek medical care Call your healthcare provider right away if your child has any of these: ? More pain, redness, swelling, bleeding, or foul-smelling discharge around the incision area ? Fever of 101?F (38.3?C) or higher, or as directed by your child's healthcare provider ? Shaking chills ? Vomiting or nausea that doesn?t go away ? Numbness, coldness, or tingling around the incision area, or changes in skin color ? Opening of the sutures or wound ? Stitches or richard come apart or fall out or surgical tape falls off before 7 days, or as directed by your healthcare provider (2) Fall (on) (from) other stairs and steps, initial encounter: Current visit: No Status: Acute repiar of lip completed. she is being transferred for further work-up of poss cardiac or stroke Dx. History of Present Illness Chief Complaint: pt feel and sustained laceration. Narrative: pt fell adn sustained facial laceration. She did pass out. she has a hx of stroke type s/s a few months ago. She underwent workup and was told that everything is nl. She is diabetic and has not had insulin or anything to eat today. Review of Systems Review of Systems All systems reviewed & are unremarkable except as noted in HPI and below Constitutional Reports as per HPI, Reports system reviewed and no additional complaints, except as docu, Denies anorexia, Denies chills, Denies difficulty sleeping, Denies fatigue, Denies headache(s), Denies lethargy, Denies malaise, Denies poor appetite, Denies weakness, Denies weight gain and Denies weight loss Eyes Reports as per HPI, Reports system reviewed and no additional complaints, except as docu and Denies change in vision ENT Reports system reviewed and no additional complaints, except as docu, Reports as per HPI, Denies change in voice, Denies dental pain, Denies dysphagia, Denies dizziness, Denies facial pain, Denies headache(s) and Denies odynophagia Comments: laceration of lip 3 . damage to #8 tooth- impacted. No injury to gum tissue- other than mild swelling. no injury to lower lip. no injury to tongue. lg area of echymosis on the chin. no sign of fracture. C spine cleared bt ED staff. Cardiovascular Reports as per HPI, Reports system reviewed and no additional complaints, except as docu, Denies chest pain, Denies chest pain with activity, Denies syncope, Denies leg edema and Denies dyspnea Comments: acute cardiac problems R/O by ED staff. Pt is being transferred for further cardiac eval for poss cardiac arrhythmia vs stroke Respiratory Reports as per HPI, Reports system reviewed and no additional complaints, except as docu, Denies chest congestion, Denies cough, Denies pain with cough and Denies dyspnea Gastrointestinal Reports as per HPI, Reports system reviewed and no additional complaints, except as docu, Denies abdominal pain, Denies bloating, Denies change in bowel habits, Denies change in stool character, Denies constipation, Denies cramping, Denies dysphagia, Denies early satiety, Denies heartburn, Denies diarrhea, Denies nausea, Denies odynophagia and Denies vomiting Musculoskeletal Reports system reviewed and no additional complaints, except as docu, Reports as per HPI, Denies abnormal gait, Denies arthralgias and Denies muscle weakness Integumentary/Breasts Reports system reviewed and no additional complaints, except as docu, Reports as per HPI, Denies changing lesions, Denies new lesions and Denies jaundice Neurologic Reports system reviewed and no additional complaints, except as docu, Reports as per HPI, Denies abnormal speech, Denies abnormal gait, Denies dizziness, Denies syncope, Denies headache(s), Denies memory loss and Denies weakness Psychiatric Reports system reviewed and no additional complaints, except as docu, Reports as per HPI, Denies change in appetite and Denies memory loss Endocrine Denies fatigue, Denies polydipsia and Denies polyuria Hematologic/Lymphatic Reports system reviewed and no additional complaints, except as docu, Denies easy bleeding and Denies easy bruising Allergic/Immunologic Denies system reviewed and no additional complaints, except as docu, Reports as per HPI and Denies urticaria PENDING SALE TO [facility] Medical History Fall (on) (from) other stairs and steps, initial encounter (Acute) Facial laceration (Acute) Cataracts, bilateral Diabetes Dysphagia Legally blind in right eye, as defined in [place] Subarachnoid hemorrhage retinal issue Surgical History Appendectomy EGD - IV Sedation (02/03/16) Extraction of cataract Social History Smoking/Tobacco Use Status: Never Alcohol Intake: never Drug use: Never Housing: apartment Do you feel safe at home: Yes Do you feel safe in your relationship?: Yes Results Last Vital Signs Temp 36.6 C 10/13/18 12:00 Pulse 88 10/13/18 20:17 Resp 16 10/13/18 20:17 BP 128/106 H 10/13/18 20:17 Pulse Ox 99 10/13/18 20:17 Labs : 10/13/18 12:30 10/13/18 12:30 Laboratory Results - last 24 hr 10/13/18 10/13/18 10/13/18 12:30 12:30 12:30 WBC 6.16 RBC 3.97 L Hgb 12.6 Hct 38.2 MCV 96.2 H MCH 31.7 MCHC 33.0 RDW 12.1 Plt Count 179 MPV 12.0 H Immature Gran % 0.2 Neutrophils % 74.2 Lymphocytes % 14.4 Monocytes % 7.0 Eosinophils % 3.6 Basophils % 0.6 Absolute Neutrophils 4.57 Absolute Lymphocytes 0.89 L Absolute Monocytes 0.43 Absolute Eosinophils 0.22 Absolute Basophils 0.04 PT 10.5 INR 1.1 APTT 24.3 Sodium 141 Potassium 4.7 Chloride 104 Carbon Dioxide 27.3 Anion Gap 9.7 BUN 23 H Creatinine 0.81 Estimated GFR/1.73 m2 >= 60.00 Glucose 177 H Calcium 9.7 Magnesium 1.3 L Total Bilirubin 0.6 AST 17 ALT 27 Alkaline Phosphatase 32 L Creatine Kinase Troponin I < 0.02 Total Protein 7.2 Albumin 3.7 Urine Color Urine Clarity Urine pH Ur Specific [place] Urine Protein Urine Ketones Urine Blood Urine Nitrite Urine Bilirubin Urine Urobilinogen Ur Leukocyte Esterase Urine RBC Urine WBC Ur Epithelial Cells Urine Crystals Urine Bacteria Urine Casts Urine Mucus Ur Culture Indicated? Urine Glucose 10/13/18 10/13/1810/13/19 12:30 13:42 16:27 WBC RBC Hgb Hct MCV MCH MCHC RDW Plt Count MPV Immature Gran % Neutrophils % Lymphocytes % Monocytes % Eosinophils % Basophils % Absolute Neutrophils Absolute Lymphocytes Absolute Monocytes Absolute Eosinophils Absolute Basophils PT INR APTT Sodium Potassium Chloride Carbon Dioxide Anion Gap BUN Creatinine Estimated GFR/1.73 m2 Glucose Calcium Magnesium Total Bilirubin AST ALT Alkaline Phosphatase Creatine Kinase 70 Troponin I < 0.02 Total Protein Albumin Urine Color Yellow Urine Clarity Sl cloudy Urine pH 7.0 Ur Specific [place] 1.025 Urine Protein 100 H Urine Ketones 15 H Urine Blood Small H Urine Nitrite Negative Urine Bilirubin Negative Urine Urobilinogen 0.2 Ur Leukocyte Esterase Moderate H Urine RBC Negative Urine WBC >50 Ur Epithelial Cells Negative Urine Crystals Negative Urine Bacteria Many Urine Casts Negative Urine Mucus Negative Ur Culture Indicated? Yes Urine Glucose Negative
--- NOTE | 2018-10-14 13:36 | ROE_ITS ---
DATE OF PROCEDURE: October 13, 2018 PREOPERATIVE DIAGNOSIS: Traumatic laceration to the face and lip and mucosa, three inches in total. POSTOPERATIVE DIAGNOSIS: Same. PROCEDURE: Laceration repair, three inches. SURGEON: Vidhya Olivares D.O. ANESTHESIA: IV sedation and local. ESTIMATED BLOOD LOSS: < 5 cc's CONDITION: The patient tolerated the procedure well without complications. INDICATION FOR PROCEDURE: Ms. Mendez is a 73-year-old female seen at the request of Dr. Cool in the E.R. regarding a facial laceration she sustained in a fall. I did discuss with the patient that risks of repair include bleeding, infection, scarring and poor cosmesis. Pt also should have this repaired in the OR. However- pt may just had a stroke, so this is not medically advisable at this time. The patient declined transfer to plastic surgeon and wishes to have this repair done locally in the E.R. She was given 1 mg of Versed IV, with constant monitoring of all vital signs. PROCEDURE DESCRIPTION: Again it involves the left superior lip to the frenulum for about an inch and then it goes i into the oral mucosa for another two inches; it is an irregular laceration. She does have an impacted tooth and the tooth will most-likely not survive. The is no injury to the gum tissue. The area is prepped and draped in the usual sterile fashion using Betadine scrub solution. It is infiltrated with 10 cc's of 1% Lidocaine plain. The skin is approximated with #4-0 Prolene and #4-0 chromic is used on the mucosa. it is closed in an single layer interrupted fashion. Minimal blood loss. The patient tolerated the procedure well without complications. She did have good cosmesis. She did receive a gram of Ancef preop and she is up to date on her Tetanus per the disposition of the patient and per E.R. Staff. cc: Edna Cortez N.P.
--- NOTE | 2018-10-15 08:46 | NUR.NOTE ---
patient transferred to [facility] 10/13/18 and discharged. Urine culture result faxed to Edna Cort[facility]. [phone].Nursing Note:
== END 2018-10-13 20:27 | disposition short-term general hospital (02) ==
PROVIDERS: Emergency Provider Physician Assistant; PCP Nurse Practitioner
DX: S01.511A Laceration without foreign body of lip, initial encounter (principal); S02.5XXA Fracture of tooth (traumatic), initial encounter for closed fracture; N39.0 Urinary tract infection, site not specified; B96.20 Unspecified Escherichia coli [E. coli] as the cause of diseases classified elsewhere; R41.82 Altered mental status, unspecified; R94.31 Abnormal electrocardiogram [ECG] [EKG]; E11.9 Type 2 diabetes mellitus without complications; F03.90 Unspecified dementia, unspecified severity, without behavioral disturbance, psychotic disturbance, mood disturbance, and anxiety; I10 Essential (primary) hypertension; W01.0XXA Fall on same level from slipping, tripping and stumbling without subsequent striking against object, initial encounter; Z79.84 Long term (current) use of oral hypoglycemic drugs
CPT/HCPCS: 36415; 36416; 80053; 82550; 82962; 87077; 93005; 96365; 96366; 99252; 99285; 70450; 70486; 71046; 72125; 72170; 81003; 81015; 83735; 84484; 85025; 85610; 85730; 87086; 87186; 93010; J0696; J2250

== ENCOUNTER 2018-10-27 02:11 | Outpatient (CLI) | payer OTHER, SELFPAY ==
--- NOTE | 2018-11-01 10:24 | HOLTER_ITS ---
DATE OF DICTATION: November 01, 2018 STUDY INDICATION: Syncope. REQUESTING PROVIDER: Edna Cortez N.P. FINDINGS: The patient was monitored for 2 days. Baseline sinus rhythm Average heart rate 73 bpm, range 53-100 bpm. 100 PVC's. No VT. 14 PAC's. No SVT. No high-degree heart block. No pauses greater than 3 seconds. No patient events. FINAL INTERPRETATION: Normal study.
== END 2018-10-27 02:31 ==
PROVIDERS: PCP Nurse Practitioner; Visit Provider Nurse Practitioner
DX: R55 Syncope and collapse (principal); I49.3 Ventricular premature depolarization
CPT/HCPCS: 93225

== ENCOUNTER 2018-10-31 11:51 | Outpatient (CLI) | payer OTHER, SELFPAY | END 2018-10-31 12:11 | PROVIDERS: PCP Nurse Practitioner; Visit Provider Nurse Practitioner | DX: R55 Syncope and collapse (principal); I49.3 Ventricular premature depolarization; I49.1 Atrial premature depolarization | CPT/HCPCS: 93226 ==

== ENCOUNTER 2018-11-01 09:44 | Outpatient (CLI) | payer OTHER, SELFPAY | END 2018-11-01 10:04 | PROVIDERS: PCP Nurse Practitioner; Referring Provider Nurse Practitioner; Visit Provider Student in an Organized Health Care Education/Training Program | DX: R55 Syncope and collapse (principal); I49.3 Ventricular premature depolarization; I49.1 Atrial premature depolarization | CPT/HCPCS: 93227 ==

== ENCOUNTER → 2018-11-03 13:54 | Outpatient (BNVA) | payer OTHER, SELFPAY | PROVIDERS: PCP Nurse Practitioner; Visit Provider Psychiatry & Neurology Neurology | DX: E85.4 Organ-limited amyloidosis (principal); E11.42 Type 2 diabetes mellitus with diabetic polyneuropathy; W10.8XXA Fall (on) (from) other stairs and steps, initial encounter; I68.0 Cerebral amyloid angiopathy; R41.3 Other amnesia; F01.50 Vascular dementia, unspecified severity, without behavioral disturbance, psychotic disturbance, mood disturbance, and anxiety; Z13.31 Encounter for screening for depression | CPT/HCPCS: 96127; 99205; 99215 ==

== ENCOUNTER → 2018-11-03 15:04 | Outpatient (BNVA) | payer OTHER, SELFPAY | PROVIDERS: PCP Nurse Practitioner; Referring Provider Nurse Practitioner; Visit Provider Physical Therapy Assistant | DX: S01.511D Laceration without foreign body of lip, subsequent encounter (principal); W01.0XXD Fall on same level from slipping, tripping and stumbling without subsequent striking against object, subsequent encounter; Z48.02 Encounter for removal of sutures ==

== ENCOUNTER → 2019-01-04 08:12 | Outpatient (BNVA) | payer OTHER, SELFPAY | PROVIDERS: PCP Nurse Practitioner; Visit Provider Nurse Practitioner Adult Health | DX: R41.3 Other amnesia (principal); G62.9 Polyneuropathy, unspecified; E11.9 Type 2 diabetes mellitus without complications | CPT/HCPCS: 99213 ==

== ENCOUNTER 2019-04-27 11:31 | Outpatient (REF) | payer OTHER, SELFPAY ==
[2019-04-27 12:40] LABS: Calculated LDL 73 mg/dL; Cholesterol 156 mg/dL (<200); HDL Cholesterol 64 mg/dL (40-60); Triglyceride 99 mg/dL (<150)
== END 2019-04-27 11:51 ==
LOC: NCHCN 11:31
PROVIDERS: PCP Nurse Practitioner; Visit Provider Nurse Practitioner
DX: E78.5 Hyperlipidemia, unspecified (principal)
CPT/HCPCS: 80061

== ENCOUNTER 2019-12-10 10:31 | Outpatient (REF) | payer OTHER, SELFPAY ==
[2019-12-10 10:53] LABS: Bilirubin Negative (Negative); Blood Small (Negative); Clarity Sl Cloudy (Clear); Glucose Negative (Negative); Ketones Negative (Negative); Leukocyte Esterase Small (Negative); Nitrite Negative (Negative); Specific Gravity >= 1.030 (1.005-1.025); pH 5.5 (5-8)
[2019-12-10 11:03] LABS: Bacteria Packed HPF (Negative); C & S Indicated? Yes; WBC >50 HPF (0-5)
== END 2019-12-10 10:51 ==
LOC: LBN 10:31
PROVIDERS: PCP Nurse Practitioner; Visit Provider Family Medicine
DX: N39.0 Urinary tract infection, site not specified (principal)
CPT/HCPCS: 87077; 81003; 81015; 87086; 87186

== ENCOUNTER 2019-12-19 18:00 | Outpatient (REF) | payer OTHER, SELFPAY ==
[2019-12-19 17:05] LABS: Bilirubin Negative (Negative); Blood Negative (Negative); Clarity Clear (Clear); Glucose 100 mg/dL (Negative); Ketones Negative (Negative); Leukocyte Esterase Negative (Negative); Nitrite Negative (Negative); Urobilinogen 0.2 EU/dL (Up TO 0.2); pH 5.5 (5-8)
[2019-12-19 18:23] LABS: Bacteria Few HPF (Negative); C & S Indicated? No; Casts Negative LPF (Negative); Crystals Negative HPF (Negative); Epithelial Cells Rare HPF (Negative); Mucus Trace (Negative); Other Cells Negative (Negative); RBC Negative HPF (0-2); WBC 0-2 HPF (0-5)
== END 2019-12-19 18:20 ==
LOC: NCHCN 18:00
PROVIDERS: PCP Nurse Practitioner; Visit Provider Nurse Practitioner
DX: N39.0 Urinary tract infection, site not specified (principal)
CPT/HCPCS: 81003; 81015

== ENCOUNTER 2020-01-23 20:48 | Outpatient (REF) | payer OTHER, SELFPAY ==
[2020-01-23 18:16] LABS: Bilirubin Negative (Negative); Blood Small (Negative); Clarity Cloudy (Clear); Glucose Negative (Negative); Ketones Negative (Negative); Leukocyte Esterase Large (Negative); Nitrite Negative (Negative); Specific Gravity 1.025 (1.005-1.025); Urobilinogen 0.2 EU/dL (Up TO 0.2); pH 5.5 (5-8)
[2020-01-23 18:24] LABS: Bacteria Packed HPF (Negative); C & S Indicated? Yes; WBC >50 HPF (0-5)
== END 2020-01-23 21:08 ==
LOC: NCHCN 20:48
PROVIDERS: PCP Nurse Practitioner; Visit Provider Nurse Practitioner
DX: N39.0 Urinary tract infection, site not specified (principal)
CPT/HCPCS: 87077; 81003; 81015; 87086; 87186

== ENCOUNTER 2020-01-26 13:01 | Outpatient (REF) | payer OTHER, SELFPAY ==
[2020-01-26 13:39] LABS: HCT 36.3 % (36.0-46.0); HGB 11.6 g/dL (11.2-15.7); MCH 31.4 pg (27.0-33.0); MCV 98.4 fL (80-95); MPV 12.1 fL (8.0-11.0); Platelet Count 246 10^3/uL (130-400); RBC 3.69 10^6/uL (3.93-5.22); RDW 12.1 % (11.7-14.6); RDW-SD 43.8 fL; WBC 9.18 10^3/uL (4.4-10.8)
[2020-01-26 13:51] LABS: ALT 23 U/L (14-59); AST 11 U/L (15-37); Alkaline Phosphatase 37 U/L (46-116); Anion Gap 10.2 mmol/L (3-11); BUN 35 mg/dL (7-18); Bilirubin, Total 0.5 mg/dL (0.2-1.0); CO2 26.8 mmol/L (21.0-32.0); CREATININE 1.08 mg/dL (0.55-1.02); Calcium 9.9 mg/dL (8.5-10.1); Calculated LDL 64 mg/dL (<100); Chloride 105 mmol/L (98-107); Cholesterol 155 mg/dL (<200); Estimated GFR 49.46 (mL/min/1.73m2); Glucose 229 mg/dL (74-106); HDL Cholesterol 70 mg/dL (40-60); Sodium 142 mmol/L (136-145); Total Protein 7.3 g/dL (6.4-8.2); Triglyceride 105 mg/dL (<150)
[2020-01-26 14:03] LABS: Hemoglobin A1C 7.4 % (<5.7)
== END 2020-01-26 13:21 ==
LOC: NCHCN 13:01
PROVIDERS: PCP Nurse Practitioner; Visit Provider Nurse Practitioner
DX: E08.321 Diabetes mellitus due to underlying condition with mild nonproliferative diabetic retinopathy with macular edema (principal); E78.5 Hyperlipidemia, unspecified; F01.50 Vascular dementia, unspecified severity, without behavioral disturbance, psychotic disturbance, mood disturbance, and anxiety; I25.2 Old myocardial infarction
CPT/HCPCS: 80053; 80061; 85027; 83036

== ENCOUNTER 2020-02-01 09:58 | Inpatient (IN) | payer OTHER, SELFPAY ==
[2020-02-01] VITALS (30 sets, daily range): BP systolic 115–174; BP diastolic 55–102; PULSE 58–81; RESP 12–20; TEMP 35.9–37.4; O2SAT 96–100
--- NOTE | 2020-02-01 | DI.US_ITS ---
EXAM: US RENAL CLINICAL HISTORY: Acute kidney injury, UTI. TECHNIQUE: Tirado scale, color and spectral Doppler were used. COMPARISON: No exams were available for comparison FINDINGS: Renal size in cm: Right: 9.6 left: 9.9 Echogenicity: Normal Hydronephrosis: No Cyst or mass: No Nephrolithiasis: No Other findings: None Bladder:Normal Prevoid vol:209 Postvoid vol: Patient unable to void DOPPLER FINDINGS: Both ureteral jets were visualized. IMPRESSION: The patient was unable to void for postvoid residual volume measurement. Exam is otherwise unremarka ble. DATA REPOSITORY:
--- NOTE | 2020-02-01 10:00 | DI.CT_ITS ---
EXAM: CT HEAD - STROKE PROTOCOL CLINICAL HISTORY: confusion. TECHNIQUE: Imaging Protocol: Axial computed tomography images with coronal and sagittal reformatted images were created and reviewed COMPARISON: CT CT HEAD CERV SPINE FACIAL WO from 10/13/2018 FINDINGS: Ventricles and Extra axial spaces: Normal in size and morphology for the patient's age. Hemorrhage: None. Cerebral parenchyma: Stable white matter changes consistent with small vessel disease. Stable right basal ganglia lacunar infarct. No acute infarct is visible. Midline shift: None. Brainstem/Cerebellum: Normal. Calvarium: Normal. Visualized Paranasal sinuses/Mastoids: Clear. Soft Tissues: Unremarkable. IMPRESSION: White matter changes of small vessel disease. No acute intracranial process. RADIATION DOSE DELIVERED: Total DLP DATA REPOSITORY: All CT scans at this facility are submitted to the National Radiology Data Registry (NRDR) Dose Index Registry (DIR) with the [employer] (ACR). RADIATION OPTIMIZATION: All CT scans at this facility use at least one of these dose optimization te chniques: automated exposure control; mA and/or kV adjustment per patient size (includes targeted exa ms where dose is matched to clinical indication); or iterative reconstruction.
--- NOTE | 2020-02-01 10:00 | RT.EKG_ITS ---
APPROVED REPORT Exam: Resting ECG Patient Location: E HR:67 bpm ECG Measurements Heart Rate 67 AXIS SD 160 P 42 QRSd 98 QRS 49 QT 403 T 33 QTc 425 Conclusion Sinus rhythm...normal P axis, V-rate 60- 99 Nonspecific repol abnormality, diffuse leads...ST dep, T flat/neg, ant/lat/inf
--- NOTE | 2020-02-01 10:03 | W.ED.GENAD ---
Discharge Plan Disposition Patient Disposition: [facility] INPATIENT Condition: Fair Discharge Details Clinical Impression: Ambulatory dysfunction, Memory loss, TAMIKA (acute kidney injury), UTI (urinary tract infection) Admit Date/Time: 02/01/20 12:07 Admit Provider: Diomedes Rosa Attending Provider: Diomedes Rosa Primary Care Provider: Edna Cortez ED Provider: Mireille Cook Discharge Data Discharge Date/Time-TO BE ENTERED AT DEPARTURE: 02/01/20 13:23 Medical Decision Making Patient is a pleasant 74-year-old female past medical history significant for subarachnoid hemorrhage, diabetes, blind in right eye, memory loss, cerebral amyloid angiopathy. Patient typically resides at the [facility]. Is brought in by them for evaluation of acute on chronic worsening of her effusion. Report that over the past several weeks. Mental state has waxed and waned to the point that she is now having difficulty with ambulation and performing her ADLs which typically she is able to do independently. They report that some days she is frankly confused and other days she is much more appropriate. They are concerned that this may be advancing of her dementia but also considered central for TIA. Patient was evaluated by her primary care who advised emergent consultation. States that recently she was treated for urinary tract infection and then briefly her symptoms did seem to improve. No fevers or chills. No recent illness. No known trauma. On exam, patient is very pleasantly confused. She is oriented to person and place but not time or situation. He has any evidence of head trauma. Patient does have a few ecchymotic areas to the right elbow as well as a small abrasion that appears to be healing well to the left elbow. Normal cardiac and respiratory exam. She not dorsal any pain at this time. Abdomen is benign. She is able to follow commands does not have any evidence of significant weakness or focal deficit. Plan obtain baseline labs as well as CT head. Discussed this plan with the patient who is in agreement. FINDINGS: Ventricles and Extra axial spaces: Normal in size and morphology for the patient's age. Hemorrhage: None. Cerebral parenchyma: Stable white matter changes consistent with small vessel disease. Stable right basal ganglia lacunar infarct. No acute infarct is visible. Midline shift: None. Brainstem/Cerebellum: Normal. Calvarium: Normal. Visualized Paranasal sinuses/Mastoids: Clear. Soft Tissues: Unremarkable. IMPRESSION: White matter changes of small vessel disease. No acute intracranial process. FINDINGS: HEART: Normal. Aorta mildly tortuous. PULMONARY VASCULATURE: Normal. LUNGS: Clear. PLEURAL SPACE: No pleural effusion or pneumothorax. BONE:Normal. IMPRESSION: No acute pulmonary findings. Labs reviewed. No leukocytosis, stable hemoglobin. Patient's potassium is elevated at 5.6. Med rec has not yet been compl eted I am unclear why she has an elevation. BUN and creatinine are both elevated, This elevation may be leading to the hyperkalemia but it does not seem drastic enough. patient is receiving hydration. Her magnesium is low at 1.3, will begin replenishing this IV. Troponin is stable. UA significant for small amount of blood, large amount leukocyte esterase, moderate bacteria. This has been sent for culture. I did review her recent culture from [facility] the beginning of the month. At that time, urine was resistant to multiple antibiotics. We will begin her on IV ciprofloxacin. Consulted with hospitalist who agrees to admission for UTI and inability to care for self at home. I have also spoken with her care managers patient will need placement elsewhere if she is no longer candidate for [facility]. HPI General Mode of arrival: wheelchair. Date/Time Provider Initiated Documentation: 02/01/20 10:03. Limitations to Documentation: altered mental status (hx of dementia). Information obtained by: patient, RN/MD (care provider from [facility]) and RN notes reviewed. HPI Narrative: Patient is a pleasantly confused 74-year-old female presenting today for evaluation of feeling at her current place of residence, the [facility]. Per their report, patient has waxed and waned over the past few weeks but by enlarge has greatly declined. They report that this is both been a mental and physical decline as the patient is no longer able to ambulate without great assistance. He states that she was treated a while ago for UTI, they believe Bactrim was used at that time. They advised that while the patient is often confused at baseline, has been much more pronounced recently. No recent fall or injury. Patient reports that she is feeling well at this time. Related Data Home Medications Medication Instructions Recorded Confirmed aspirin 81 mg tablet 81 mg PO DAILY 07/05/18 02/01/20 atorvastatin 80 mg tablet 80 mg PO DAILY 07/05/18 02/01/20 esomeprazole magnesium 40 mg 40 mg PO DAILY 07/05/18 02/01/20 capsule,delayed release metformin 500 mg tablet 1,000 mg PO BID tab 09/14/18 02/01/20 Allergies Allergy/AdvReac Type Severity Reaction Status Date / Time No Known Allergies Allergy Unverified 01/04/19 08:39 General SHARMIN: 2 Review of Systems Unobtainable due to mental condition [facility] Medical History (Updated 02/06/20 @ 15:39 by DANIEL Holloway) Cataracts, bilateral Cerebral amyloid angiopathy Diabetes Facial laceration Fall (on) (from) other stairs and steps, initial encounter Legally blind in right eye, as defined in [place] Memory loss Peripheral neuropathy retinal issue left eye Subarachnoid hemorrhage Surgical History Appendectomy EGD - IV Sedation (02/03/16) Extraction of cataract bilateral Social History Smoking/Tobacco Use Status: Never Alcohol Intake: never Drug use: Never Household members: none Housing: apartment Exam Const General: cooperative, healthy appearing, comfortable, no acute distress and well developed Nutritional Appearance: average body habitus and well nourished Orientation: alert, awake, oriented to person, oriented to place, not oriented to time and confused HENMT Head: normal to inspection Ears: hearing grossly normal bilaterally Mouth: moist mucous membranes Chest Chest: normal inspection of the chest, normal palpation of entire chest wall and no crepitus Resp Effort & Inspection: normal respiratory effort, able to speak in complete sentences and no respiratory distress Auscultation: clear to auscultation bilaterally, no rales, no rhonchi and no wheezes Cardio Rate: regular rate Rhythm: regular rhythm Heart Sounds: S1 normal and S2 normal GI Inspection: normal to inspection, no edema and non-distended Palpation: soft, no hepatosplenomegaly, not firm, no guarding, not rigid and nontender Auscultation: normal bowel sounds Back/Spine/Pelvis Back: no CVA tenderness Thoracic/Lumbar Spine: thoracic and lumbar spine normal to inspection Skin General skin exam: no rashes or lesions noted Trauma: no lacerations or abrasions Neuro General: patient alert, patient awake and patient oriented x3 Cognition: normal cognition Speech: speech normal Gait: normal gait Extrem General: normal to inspection, capillary refill normal, no pedal edema, no calf tenderness and normal gait Psych Appearance: grossly normal and well kempt Mental Status: mental status grossly normal Speech and Movement: speech and movement normal
[2020-02-01 10:28] LABS: Abs Immature Grans 0.04 10^3/uL (0.0-0.06); Absolute Basophil Count 0.05 10^3/uL (0.0-0.2); Absolute Eosinophil Count 0.26 10^3/uL (0.0-0.7); Absolute Lymphocyte Count 1.86 10^3/uL (1.2-3.4); Absolute Monocyte Count 0.64 10^3/uL (0.1-0.8); Absolute Neutrophil Count 6.22 10^3/uL (1.2-6.7); Basophils % 0.6; Eosinophils % 2.9; HCT 34.4 % (36.0-46.0); HGB 11.5 g/dL (11.2-15.7); Immature Grans % 0.4; Lymphocytes % 20.5; MCH 32.1 pg (27.0-33.0); MCHC 33.4 % (32.0-36.0); MCV 96.1 fL (80-95); MPV 11.8 fL (8.0-11.0); Monocytes % 7.1; Neutrophils % 68.5; Nucleated RBC 0 %; Platelet Count 209 10^3/uL (130-400); RBC 3.58 10^6/uL (3.93-5.22); RDW 12.1 % (11.7-14.6); WBC 9.07 10^3/uL (4.4-10.8)
[2020-02-01 10:48] LABS: ALT 30 U/L (14-59); AST 21 U/L (15-37); Albumin 3.9 g/dL (3.4-5.0); Alkaline Phosphatase 34 U/L (46-116); Anion Gap 8.2 mmol/L (3-11); BUN 44 mg/dL (7-18); Bilirubin, Total 0.6 mg/dL (0.2-1.0); CO2 25.8 mmol/L (21.0-32.0); Calcium 10.3 mg/dL (8.5-10.1); Chloride 102 mmol/L (98-107); Estimated GFR 31.42 (mL/min/1.73m2); Glucose 152 mg/dL (74-106); Magnesium 1.3 mg/dL (1.8-2.4); Potassium 5.6 mmol/L (3.5-5.1); Sodium 136 mmol/L (136-145); Total Protein 7.4 g/dL (6.4-8.2)
[2020-02-01 10:52] LABS: Troponin I < 0.05 ng/mL (<0.06)
[2020-02-01 11:02] LABS: Bilirubin Negative (Negative); Blood Small (Negative); Clarity Cloudy (Clear); Glucose Negative (Negative); Ketones Negative (Negative); Leukocyte Esterase Large (Negative); Nitrite Negative (Negative)
[2020-02-01 11:07] LABS: Bacteria Moderate HPF (Negative); C & S Indicated? Yes; Casts 0-2 Coarse Granular LPF (Negative); Crystals Negative HPF (Negative); Epithelial Cells Rare HPF (Negative); Mucus Negative (Negative); Other Cells Few Transitional (Negative); WBC >50 HPF (0-5)
--- NOTE | 2020-02-01 11:24 | DI.RAD_ITS ---
EXAM: XR CHEST 2V PA LATERAL CLINICAL HISTORY: confusion TECHNIQUE: 2D digital imaging was performed. COMPARISON: CR XR CHEST 2V PA LATERAL from 10/13/2018 FINDINGS: HEART: Normal. Aorta mildly tortuous. PULMONARY VASCULATURE: Normal. LUNGS: Clear. PLEURAL SPACE: No pleural effusion or pneumothorax. BONE:Normal. IMPRESSION: No acute pulmonary findings. DATA REPOSITORY: RADIATION DOSE DELIVERED:
[2020-02-01] MEDS: MAGNESIUM SULFATE 1 GM/100 ML BAG IVPB (11:48)
[2020-02-01] MEDS: Normal Saline 1,000 ML 500 ML IV (11:55)
--- NOTE | 2020-02-01 11:59 | W.PM.HP.N ---
Date of service: 02/01/20 Time of Service: 11:59 Assessment and Plan Assessment and plan (1) Complicated urinary tract infection: Status: Acute Assessment and plan: just finished course of bactrim for MDR enterobacter UTI based on cultures. re-infected now. will place on imipenem day 06/02 based on that last culture while awaiting this one bladder scan for post void residual. (2) Acute kidney injury: Status: Acute Assessment and plan: likely prerenal d/t dehydration. gentle IV fluids, monitor I&O, avoid nephrotoxic drugs, renal dose medication, hold metformin. post void bladder scan to evaluate for retention. renal ultrasound (3) Hyperkalemia: Status: Acute Assessment and plan: giving IV fluids for now. likely d/t TAMIKA, monitor closely (4) Hypomagnesemia: Status: Acute Assessment and plan: mag 1.3, replete and follow (5) Diabetes mellitus type 2, controlled: Status: Acute Assessment and plan: A1C was 7.4 last week, down from 11.1 last spring. continue diabetic diet, hold metformin in setting of TAMIKA. check blood sugars ac/hs and sliding scale coverage as needed. (6) Ambulatory dysfunction: Status: Acute Assessment and plan: multifactoral with acute infection, dehydration and TAMIKA. fall precautions PT/OT (7) DVT prophylaxis: Status: Acute Assessment and plan: heparin teds and scds (8) Discharge planning issues: Status: Acute Assessment and plan: case management consulted. will most likely need higher level of care. discussed with DR Rosa who is in agreement History of Present Illness History of Present Illness Chief Complaint: weakness generalized Narrative: This is a 74-year-old female patient With past medical history of dementia recently treated for urinary tract infection with Bactrim, who resides at the [facility] who is had about a 6-week decline in her functional status. She has had no fevers or reported illness. She was brought to the emergency department as she is now having more difficulty caring for herself and mobilizing. Work-up in the emergency department does show urinary tract infection with dehydration. She is being admitted to hospitalist services for further management she will need placement on discharge. Review of Systems All systems reviewed & are unremarkable except as noted in HPI and below and Unobtainable due to mental status (dementia, memory deficit, information obtained from record and neonatal critical care nurse) PFSH Medical History (Updated 02/01/20 @ 12:16 by Trang Arenas NP) Cataracts, bilateral Cerebral amyloid angiopathy Diabetes Facial laceration Fall (on) (from) other stairs and steps, initial encounter Legally blind in right eye, as defined in [place] Memory loss Peripheral neuropathy retinal issue left eye Subarachnoid hemorrhage Surgical History Appendectomy EGD - IV Sedation (02/03/16) Extraction of cataract bilateral Social History Smoking/Tobacco Use Status: Never Alcohol Intake: never Drug use: Never Household members: none Housing: apartment Meds Home Medications and Allergies Home Medications Medication Instructions Recorded Confirmed Type aspirin 81 mg tablet 81 mg PO DAILY 07/05/18 02/01/20 History atorvastatin 80 mg tablet 80 mg PO DAILY 07/05/18 02/01/20 History esomeprazole magnesium 40 mg 40 mg PO DAILY 07/05/18 02/01/20 History capsule,delayed release metformin 500 mg tablet 1,000 mg PO BID tab 09/14/18 02/01/20 History Allergies Allergy/AdvReac Type Severity Reaction Status Date / Time No Known Allergies Allergy Unverified 01/04/19 08:39 Exam Const General: cooperative, healthy appearing, comfortable and no acute distress Nutritional Appearance: thin Orientation: alert, awake, oriented to person, oriented to place and other (able to provide some accurate history) [facility] Head: normal to inspection, normocephalic and atraumatic Mouth: oral mucosae normal and moist mucous membranes abnormal (slightly dry) Resp Effort & Inspection: normal respiratory effort Auscultation: clear to auscultation bilaterally Cardio Rate: regular rate Rhythm: regular rhythm GI Inspection: normal to inspection Palpation: soft Auscultation: normal bowel sounds Skin General skin exam: no rashes or lesions noted Neuro General: patient alert, patient awake, patient oriented x3, moves all extremities and no focal motor deficits Cognition: abnormal cognition (cognitive impairment) Speech: speech normal Gait: shuffling and gait assisted Method: walker Motor: muscle tone normal throughout Extrem General: no pedal edema Results Labs Result diagrams: 02/01/20 10:20 02/01/20 10:20 Labs: Laboratory Results - last 24 hr 02/01/20 02/01/20 02/01/20 10:20 10:20 10:55 WBC 9.07 RBC 3.58 L Hgb 11.5 Hct 34.4 L MCV 96.1 H MCH 32.1 MCHC 33.4 RDW 12.1 Plt Count 209 MPV 11.8 H Immature Gran % 0.4 Neutrophils % 68.5 Lymphocytes % 20.5 Monocytes % 7.1 Eosinophils % 2.9 Basophils % 0.6 Nucleated RBC % 0 Absolute Neutrophils 6.22 Absolute Lymphocytes 1.86 Absolute Monocytes 0.64 Absolute Eosinophils 0.26 Absolute Basophils 0.05 Sodium 136 Potassium 5.6 H Chloride 102 Carbon Dioxide 25.8 Anion Gap 8.2 BUN 44 H Creatinine 1.60 H Estimated GFR/1.73 m2 31.42 Glucose 152 H Calcium 10.3 H Magnesium 1.3 L Total Bilirubin 0.6 AST 21 ALT 30 Alkaline Phosphatase 34 L Troponin I < 0.05 Total Protein 7.4 Albumin 3.9 Urine Color Yellow Urine Clarity Cloudy Urine pH 6.0 Ur Specific [place] 1.020 Urine Protein 100 H Urine Ketones Negative Urine Blood Small H Urine Nitrite Negative Urine Bilirubin Negative Urine Urobilinogen 1.0 H Ur Leukocyte Esterase Large H Urine RBC 5-10 H Urine WBC >50 H Ur Epithelial Cells Rare Urine Crystals Negative Urine Bacteria Moderate Urine Casts 0-2 coarse granular Urine Mucus Negative Urine Other Few transitional Ur Culture Indicated? Yes Urine Glucose Negative Last Vital Signs Temp 36.3 C L 02/01/20 10:04 Pulse 72 02/01/20 10:04 Resp 18 02/01/20 10:04 BP 136/75 02/01/20 10:04 Pulse Ox 99 02/01/20 10:04
[2020-02-01] MEDS: IMIPENEM/CILASTATIN 500 MG in Normal Saline 100 ML 200 MG IVPB ×3 (12:30→23:47)
[2020-02-01] MEDS: Normal Saline Flush 10 ML SYR IVP (14:19)
[2020-02-01] MEDS: Heparin 5,000 UNITS/ML VIAL 5000 UNITS SC (14:19)
[2020-02-01] MEDS: Normal Saline 1,000 ML 80 ML IV (14:19)
[2020-02-01] MEDS: MAGNESIUM SULFATE 2 GM/50 ML BAG IVPB (14:19)
--- NOTE | 2020-02-01 14:35 | PT.INIE ---
Date of service: 02/01/20 Time of Service: 13:50 PT Notes Visit Reasons: URINARY TRACT INFECTION, ACUTE KIDNEY INJURY, HYPE Physical Therapy Inpatient Initial Evaluation Date: 02/01/2020 Referring Doctor: Trang Arenas NP PT Orders: PT CONSULT: Eval/treat Precautions: Fall. Standard. Activity as tolerated. Patient Profile/Admitting Diagnosis: Suni 74-year-old female who present to the ED today with worsening of mental status and progressive difficulty with ADL performance. Patient is diagnosed with complicated urinary tract infection, acute kidney injury, hyperkalemia, hypomagnesemia, type 2 diabetes mellitus, and ambulatory dysfunction. PMHX: Medical History (Updated 02/01/20 @ 12:16 by Trang Arenas NP) Cataracts, bilateral Cerebral amyloid angiopathy Diabetes Facial laceration Fall (on) (from) other stairs and steps, initial encounter Legally blind in right eye, as defined in [place] Memory loss Peripheral neuropathy Retinal issue left eye Subarachnoid hemorrhage Surgical History Appendectomy EGD - IV Sedation (02/03/16) Extraction of cataract bilateral Social History/Home Situation: Long-term care resident of the [facility] Equipment Owned/DME: Front-wheeled walker Subjective: I live and work at the [facility]. I am starving, I have not eaten anything since yesterday. In a later session after she ate her meal, Suni refused to walk any farther but agreed to walk back to bed for a short distance stating that she has to figure out something so I could go back to [place] without needing to pay a lot for my care here. She has been informed several times during this session that her insurance will be covering for her stay here but her confusion is getting in the way and increasing her anxiety. Objective: General Observation: IV in the right UE. Mental Status: Oriented to self but not to place and time. Able to follow single-step commands. Pain: None reported ROM: Right Upper Extremity: Shoulder Flexion WFL. Shoulder abduction WFL. Elbow flexion WFL. Wrist flexion WFL. Opening and closing of hand WFL. Left Upper Extremity: Shoulder Flexion WFL. Shoulder abduction WFL. Elbow flexion WFL. Wrist flexion WFL. Opening and closing of hand WFL. Right Lower Extremity: Hip flexion WFL. Hip abduction WFL. Knee flexion WFL. Ankle dorsiflexion WFL. Ankle plantarflexion WFL. Left Lower Extremity: Hip flexion WFL. Hip abduction WFL. Knee flexion WFL. Ankle dorsiflexion WFL. Ankle plantarflexion WFL. Strength: Right Upper Extremity: Shoulder flexors 4/5. Shoulder abductors 4/5. Elbow flexors 4/5. Elbow extensors 4/5. [employer] strong. Left Upper Extremity: Shoulder flexors 4/5. Shoulder abductors 4/5. Elbow flexors 4/5. Elbow extensors 4/5. Supervisor [employer] strong. Right Lower Extremity: Hip flexors 3+/5. Hip abductors 3+/5. Knee flexors 4-/5. Knee extensors 3+/5. Ankle dorsiflexors 4/5. Ankle plantarflexors 4/5. Left Lower Extremity: Hip flexors 3+/5. Hip abductors 3+/5. Knee flexors 4-/5. Knee extensors 3+/5. Ankle dorsiflexors 4/5. Ankle plantarflexors 4/5. Sensation: Intact as to pain and pressure on bilateral lower extremities. Bed Mobility/Transfers: Rolling SBA Supine to sit contact-guard assist, verbal cues needed for safety Sit to supine contact-guard assist, verbal cues needed for safety Sit to stand contact-guard assist, verbal cues needed for safety and walker management Stand to sit contact-guard assist, verbal cues needed for safety and walker management Bed to chair contact-guard assist, verbal cues needed for safety and walker management Chair to bed contact-guard assist, , verbal cues needed for safety and walker management Gait: 10 steps using FWW with CGA and moderate verbal cueing for directions and safety. Decreased gait speed. In a session a little alter after patient ate her meal, she only was agreeable to walking back to bed despite encouragement to go for a longer walk. Balance: Static Sitting: Normal Dynamic Sitting: Normal Static Standing: Fair Dynamic Standing: Fair Special Tests: Mobility Limitations Standardized Measure [facility] AM-PAC 6 clicks Basic Mobility Inpatient Short Form: Raw Score: 20 CMS Score: 36% deficit Informed Consent/Education: Patient instructed in purpose of PT consult and plan of care. Assessment: Suni demonstrates increased confusion, functional mobility decline requiring use of front wheeled walker and verbal cueing of another for safety, faculty with walking, and impairment with balance due to admitting diagnoses. Suni 74-year-old female who present to the ED today with worsening of mental status and progressive difficulty with ADL performance. Patient is diagnosed with complicated urinary tract infection, acute kidney injury, hyperkalemia, hypomagnesemia, type 2 diabetes mellitus, and ambulatory dysfunction. Patient presents with clinical signs and symptoms consistent with current/admitting diagnoses that have resulted to mobility limitations, gait instability, generalized weakness, and impairment of motor control as demonstrated by the following impairment level findings: 1. Decreased strength to B LE major muscle groups 2. Impaired sitting/standing balance 3. Impaired activity tolerance Impairments are contributing to the following functional limitations: 1. Increased dependence with transfers 2. Inability to safely ambulate without assistive device and physical assistance 3. Increase completion time for mobility ADL performance 4. Increased fall risk 5. Inability to negotiate steps alone safely Patient is assessed as a complexity based on the following: History: 74-year-old female with impairment level findings, functional limitations, and past medical history as indicated above Examination: Demonstrable impairment in strength, balance, and mobility level with underlying impairments and functional limitations as documented above Presentation:Evolving Decision Makin moderate complexity Goals: Goals X1 week 1. Supine-Sit independent 2. Sit-Supine independent 3. Sit-Stand independent 4. Stand-Sit independent 5. Bed-Chair supervision 6. Chair-Bed supervision 7. Supervision gait on level surface with use of least restrictive device for at least 300 feet without report of pain nor dyspnea 8. Supervision stair negotiation while holding onto bilateral rails for at least 10 steps without report of pain nor dyspnea 9. Independent with home exercise program 10. Good static and dynamic standing balance/tolerance Plan of Care/Treatment Plan: 1-2x/day, 7 days/week x 1 week. Plan of care has been reviewed with the DIRECTOR [employer] providing the service under Physical Therapy direction. Initiate Physical Therapy intervention for strengthening, bed mobility, transfers, gait, stairs, balance training, use of assistive device. DISCHARGE RECOMMENDATIONS: Patient will benefit from home health PT services in order to progress mobility level using least restrictive assistive ambulatory device, assess home safety, identify additional equipment needs, and establish a functional maintenance program that will increase ability of patient to remain at home. TREATMENT CODE/TIME: 02489 x 20 minutes at 13:50 PM and 16948 x 27 minutes beginning at 14:35 PM. Thank you for the opportunity to participate in the care of this patient. Linda Rodriguez PT, DPT, CLT [facility] [place], [place]
[2020-02-01] MEDS: Insulin Aspart 300 UNITS/3 ML PEN SC (17:42)
[2020-02-01] MEDS: Sodium Zirconium Cyclosilicate 10 GM PKT PO (17:43)
[2020-02-02 01:00] VITALS: BP 180/77; PULSE 69; RESP 17; TEMP 35.9; O2SAT 96
[2020-02-02 02:38] VITALS: O2SAT 97
[2020-02-02] MEDS: Normal Saline 1,000 ML 80 ML IV ×2 (04:29→17:07)
[2020-02-02] MEDS: Heparin 5,000 UNITS/ML VIAL 5000 UNITS SC ×3 (05:35→21:35)
[2020-02-02] MEDS: Sodium Zirconium Cyclosilicate 10 GM PKT PO ×3 (05:36→21:35)
[2020-02-02] MEDS: IMIPENEM/CILASTATIN 500 MG in Normal Saline 100 ML 200 MG IVPB ×2 (05:38→11:30)
[2020-02-02 08:13] VITALS: BP 194/88; PULSE 81; RESP 17; TEMP 36.7; O2SAT 98
[2020-02-02] MEDS: Esomeprazole 40 MG CAPCR PO (08:20)
[2020-02-02] MEDS: Aspirin E.C. 81 MG TABEC PO (08:20)
[2020-02-02] MEDS: Atorvastatin 40 MG TAB 80 MG PO (08:20)
[2020-02-02] MEDS: Insulin Aspart 300 UNITS/3 ML PEN SC ×3 (08:22→16:56)
[2020-02-02 08:37] LABS: COVID-19 RT-PCR UVMMC Result Negative (Negative)
[2020-02-02] MEDS: amLODIPine 10 MG TAB PO (09:14)
--- NOTE | 2020-02-02 09:15 | PT.INTREAT ---
Date of service: 02/02/20 Time of Service: 09:15 PT Notes Visit Reasons: URINARY TRACT INFECTION, ACUTE KIDNEY INJURY, HYPE Inpatient Physical Therapy Treatment Note [facility] Date: 02/02/2020 PRECAUTIONS: Fall SUBJECTIVE: Suni is pleasant, but reports that she is confused this morning. She also reports concerns that she is here without her cane or wallet. She states that she does not walk far at home because I hate walking and I hate exercise. OBJECTIVE: PAIN: No c/o pain BED MOBILITY/TRANSFERS Supine-sit: SBA Sit-supine: SBA Sit-stand: CGA Stand-sit: CGA Bed-Chair: CGA Chair-bed: CGA GAIT Assistive Device: FWW in a.m.; SPC and BELLMAN DRIVER in p.m. Weight bearing: Full Assist: CGA Distance: 80' + 10' in a.m.; 200' in p.m. Deviation: Slow keke, cueing for increased stride length TOILETING: Patient toileted with assist for doffing/donning brief, due to confusion, and with transfers for safety ASSESSMENT: Patient tolerated session well without complaint. She requires constant instruction and cueing due to confusion, as well as CGA with gait training for safety. PLAN: Perform gait training with SPC versus FWW in attempt to decreased confusion and progress toward baseline level of function. TREATMENT CODE/TIME: Session 1: 30 minutes; 69619 x2 Session 2: 20 minutes; [id number]
--- NOTE | 2020-02-02 09:47 | INITIAL_ITS ---
- If Service Date Differs Date of service: 02/02/20 Time of Service: 15:31 Care Management Initial Assess REASON FOR HOSPITALIZATION:: UTI, Acute Kidney Injury, Hypomagnesium, Hyperkalemia PAST MEDICAL HISTORY/PAST SURGICAL HISTORY:: Cataracts; bilateral, cerebral amyloid angiopathy, diabetes, facial laceration, legally blind in right eye, memory loss, peripheral neuropathy, retinal issue, subarachnoid hemorrage, appendectomy, EGD, extraction of cataract PREVIOUS FUNCTIONAL STATUS/SOCIAL/FAMILY SUPPORTS:: Suni resides at [facility]. Her sister resides nearby in [place]. CURRENT FUNCTIONAL STATUS:: Suni is walking with stand by assist, and a cane. She is awake, alert and agreeable at this time. CODE STATUS:: DNR/DNI INSURANCE COVERAGE / FINANCIAL ISSUES:: [facility] CURRENT HOME/COMMUNITY SERVICES/EQUIPMENT:: [facility]: [facility] PRIMARY CARE PHYSICIAN:: Edna Cortez POTENTIAL DISCHARGE NEEDS:: Evaluations for further needs, coordinated return to [facility]. PATIENT/FAMILY EDUCATION NEEDS:: Review discharge instructions, discuss Ask Me three. ANTICIPATED BARRIERS TO DISCHARGE:: None identified at this time. TRANSPORTATION:: TBD by disposition. PLAN:: Suni will return home when ready per MD. She will follow up with her PCP and plan of care as prescribed. PT is recommending home PT at [facility]. Anticipate she will transport via private vehicle with facility staff or family.
--- NOTE | 2020-02-02 11:32 | PHACLINREV_ITS ---
Pharmacy Admission Review - Admission Clinical Review (Last Reviewed 01/04/19 @ 09:15 by Silvia Miller) Ambulatory dysfunction (Acute) Discharge planning issues (Acute) DVT prophylaxis (Acute) Diabetes mellitus type 2, controlled (Acute) Hypomagnesemia (Acute) Hyperkalemia (Acute) Acute kidney injury (Acute) Complicated urinary tract infection (Acute) No Known Allergies Allergy (Unverified 01/04/19 08:39) Weight 53.8 kg ? recurring UTI, TAMIKA - Comments Comments/Follow Ups: Need results of lab draw for Potassium, Mag, SCr. Asked MD to either adjust Primaxin dose based on last night's poor renal function or D/C. Micro urine was <10K and asymptomatic. MD discontinued therapy for now. Previous urine cultures from 01/23/20 grew Enterobacter and patient completed course of oral Bactrim. Working with PT, does not like to walk, a bit confused, refusing some meds. Has NS @ 80ml/min. Pt from [facility] - Renal Dosing Renal Dosing: BUN 44 mg/dL (7-18) H 02/01/20 10:20 Creatinine 1.60 mg/dL (0.55-1.02) H 02/01/20 10:20 Medications needing adjustments: Reviewed (Primaxin needs adjustment for reduced renal function. Patient did not have height entered, requested from nursing, but also found previous height recorded from local office visit (~5ft1)) List of meds needing interventions: Primaxin IV for UTI needs renal adjustment - Anticoagulation Anticoagulation: Hgb 11.5 g/dL (11.2-15.7) 02/01/20 10:20 Hct 34.4 % (36.0-46.0) L 02/01/20 10:20 Plt Count 209 10^3/uL (130-400) 02/01/20 10:20 Creatinine 1.60 mg/dL (0.55-1.02) H 02/01/20 10:20 DVT Prohphylaxis: Reviewed Medications: Heparin - Opiate Usage Evaluate Pain Scale/Pains Meds: N/A - Relevant Labs Sodium 136 mmol/L (136-145) 02/01/20 10:20 Potassium 5.6 mmol/L (3.5-5.1) H 02/01/20 10:20 Chloride 102 mmol/L (98-107) 02/01/20 10:20 Magnesium 1.3 mg/dL (1.8-2.4) L 02/01/20 10:20 Electrolytes, C-Reactive P, ESR: Reviewed (Mag 2gram IV x1 last night, Lokelma started for elevated K+, labs pending this morning, patient refusing some meds and refusing blood draw, waiting to see if SCr has improved) - DM Control DM Control: Glucose 152 mg/dL (74-106) H 02/01/20 10:20 Finger Stick Blood Glucose 189 Finger Stick Blood Glucose 168 Finger Stick Blood Glucose 168 Insulin Dosing: Reviewed (Novolog scale) - Heart Failure/NC Heart Failure/NC: Troponin I < 0.05 ng/mL (<0.06) 02/01/20 10:20 EF%, POOJA's, B-Blockers, Diuretics: Reviewed (Amlodipine) - BP Control BP Control: Blood Pressure 194/88 Blood Pressure 180/77 Blood Pressure 146/88 Blood Pressure 146/88 If elevated: Reviewed (Amlodipine just added this morning, have not seen repeat Vitals) - Qtc Review If Elevated: Reviewed (QTC 425-no concern) - IV to PO Switch IV Medications: Reviewed (IV Antibiotic if possible, was on oral Bactrim as outpt) - Home Meds Home Med List reviewed: Reviewed Relevent Home Meds Not ordered & why?: Metformin-has Novolog scale Antibiotic Activity - Pharmacy Antibiotic Review Pharmacy Antibiotic Activity: Antibiotic de-escalation (MD jaquez based on pharmacy recommendation, patient previously finished therapy with Bactrim DS) - Antibiotic Information Antibiotic Review Info: Micro urine <10K, asymptomatic, no fever, no WBC. MD jaquez Primaxin
--- NOTE | 2020-02-02 13:56 | W.INDIABCONS ---
Date of service: 02/02/20 Time of Service: 13:57 Diabetes Inpatient Consult DESCRIPTION/ASSESSMENT: Recieved Diabetic Inpatient consult for ptGeorgette Culp is 74 yo female admitted with UTI, TAMIKA here for IV hydration. PMH: dysphagia, DM. Recent labs indicate relatively well controlled DM for age (01/26/20 7.4%), typically takes metformin at home. Blood sugars mildly elevated, treated with SS insulin. Nursing reports no issues with food texture, tolerating well. INTERVENTION: Not appropriate for education at this time due to confusion. PLAN: Continue diabetic diet and monitor BS and treat, weight daily, monitor for symptoms of dysphagia Time Spent in Nutritional Counseling and Treatment: 5 min spent face to face
[2020-02-02 14:18] LABS: Abs Immature Grans 0.02 10^3/uL (0.0-0.06); Absolute Basophil Count 0.03 10^3/uL (0.0-0.2); Absolute Eosinophil Count 0.17 10^3/uL (0.0-0.7); Absolute Lymphocyte Count 1.07 10^3/uL (1.2-3.4); Absolute Monocyte Count 0.47 10^3/uL (0.1-0.8); Absolute Neutrophil Count 4.79 10^3/uL (1.2-6.7); Basophils % 0.5; Eosinophils % 2.6; HCT 35.1 % (36.0-46.0); HGB 11.3 g/dL (11.2-15.7); Immature Grans % 0.3; Lymphocytes % 16.3; MCH 31.4 pg (27.0-33.0); MCHC 32.2 % (32.0-36.0); MCV 97.5 fL (80-95); MPV 11.5 fL (8.0-11.0); Monocytes % 7.2; Neutrophils % 73.1; Nucleated RBC 0 %; Platelet Count 196 10^3/uL (130-400); RDW 11.9 % (11.7-14.6); RDW-SD 42.7 fL; WBC 6.55 10^3/uL (4.4-10.8)
[2020-02-02 14:25] LABS: Anion Gap 7.1 mmol/L (3-11); BUN 22 mg/dL (7-18); CO2 24.9 mmol/L (21.0-32.0); CREATININE 1.19 mg/dL (0.55-1.02); Calcium 9.2 mg/dL (8.5-10.1); Chloride 105 mmol/L (98-107); Estimated GFR 44.22 (mL/min/1.73m2); Glucose 225 mg/dL (74-106); Potassium 4.6 mmol/L (3.5-5.1); Sodium 137 mmol/L (136-145)
[2020-02-02 14:26] LABS: Magnesium 1.7 mg/dL (1.8-2.4)
--- NOTE | 2020-02-02 15:00 | PGE_ITS ---
Date of Service Date of service: 02/02/20 Time of Service: 15:00 Assessment and Plan Assessment and plan (1) Ambulatory dysfunction: Status: Acute Assessment and plan: Working with PT/OT Etiology of decline not clear. (2) Discharge planning issues: Status: Acute Assessment and plan: She would like to return to her assisted living facility [facility], PT/OT. (3) Diabetes mellitus type 2, controlled: Status: Acute Assessment and plan: Holding metformin SS insulin correction dosing. Glucose readings in the 140-180's range. Monitor Diabetic diet (4) Hypomagnesemia: Status: Acute Assessment and plan: Magnesium improved to 1.7 Oral replacement (5) Hyperkalemia: Status: Acute Assessment and plan: Resolved Monitor (6) Acute kidney injury: Status: Acute Assessment and plan: Cr improved from 1.6 to 1.19 Monitor (7) Complicated urinary tract infection: Status: Acute Assessment and plan: Ruled out; <10,000 CFU's growing. Stopped antibiotic. Subjective Subjective Patient reports: no new complaints and feels better Interval history since last seen: Poor historian Was happy to find her urine culture was negative. Eating OK Willing to work with PT Exam Const General: cooperative and no acute distress Nutritional Appearance: average body habitus Resp Effort & Inspection: normal respiratory effort Auscultation: clear to auscultation bilaterally Cardio Rate: regular rate Rhythm: regular rhythm Heart Sounds: S1 normal and S2 normal GI Palpation: soft Auscultation: normal bowel sounds Extrem General: no clubbing, cyanosis or edema Psych Appearance: grossly normal Speech and Movement: speech and movement normal Affect: normal affect Thought Process: impoverished Objective Objective Clinical Data: Abnormal lab results 02/02/20 02/02/20 02/02/20 Range/Units 14:06 14:06 14:06 RBC 3.60 L (3.93-5.22) 10^6/uL Hct 35.1 L (36.0-46.0) % MCV 97.5 H (80-95) fL MPV 11.5 H (8.0-11.0) fL Absolute Lymphocytes 1.07 L (1.2-3.4) 10^3/uL BUN 22 H D (7-18) mg/dL Creatinine 1.19 H (0.55-1.02) mg/dL Glucose 225 H (74-106) mg/dL Magnesium 1.7 L (1.8-2.4) mg/dL Vital Signs Temperature 36.7 C 02/02/20 08:13 Temperature Source Tympanic 02/02/20 08:13 Pulse 81 02/02/20 08:13 Pulse Rhythm Regular 02/02/20 09:30 Pulse 58 L 02/01/20 12:31 Respiratory Rate 17 02/02/20 08:13 Respiratory Effort Non-Labored 02/02/20 09:30 Respiratory Depth Normal 02/02/20 09:30 Respiratory Pattern Normal 02/02/20 09:30 Blood Pressure 194/88 H 02/02/20 08:13 Blood Pressure Mean 83 02/01/20 12:31 Pulse Oximetry 98 02/02/20 08:13 Oxygen Delivery Method Room Air 02/02/20 08:13 Oxygen Flow Rate 0 02/02/20 08:13 Pain Level 0 02/02/20 08:13 Intake & Output 02/01/20 02/02/20 02/02/20 23:59 11:59 23:59 Intake Total 1403.333 / 5679.897 4162 / 1420 100 / 1420 Output Total 300 / 300 1870 / 2020 150 / 2020 Balance 1103.333 / 1103.333 -550 / -600 -50 / -600 Weight 53.8 kg 53.8 kg Intake: IV 1283.333 / 9226.493 1078 / 1300 100 / 1300 Oral 120 / 120 120 / 120 Output: Urine 300 / 300 1650 / 1800 150 / 1800 Post Void Residual 220 / 220 Other: Urine Color Yellow Yellow Urine Appearance Clear Clear Urine Odor None Normal Comment small inct, pt tolerated activity well Voiding Methods Diaper Toilet Toilet Incontinent Laboratory Results WBC 6.55 10^3/uL (4.4-10.8) 02/02/20 14:06 RBC 3.60 10^6/uL (3.93-5.22) L 02/02/20 14:06 Hgb 11.3 g/dL (11.2-15.7) 02/02/20 14:06 Hct 35.1 % (36.0-46.0) L 02/02/20 14:06 MCV 97.5 fL (80-95) H 02/02/20 14:06 MCH 31.4 pg (27.0-33.0) 02/02/20 14:06 MCHC 32.2 % (32.0-36.0) 02/02/20 14:06 RDW 11.9 % (11.7-14.6) 02/02/20 14:06 Plt Count 196 10^3/uL (130-400) 02/02/20 14:06 MPV 11.5 fL (8.0-11.0) H 02/02/20 14:06 Immature Gran % 0.3 02/02/20 14:06 Neutrophils % 73.1 02/02/20 14:06 Lymphocytes % 16.3 02/02/20 14:06 Monocytes % 7.2 02/02/20 14:06 Eosinophils % 2.6 02/02/20 14:06 Basophils % 0.5 02/02/20 14:06 Nucleated RBC % 0 % 02/02/20 14:06 Absolute Neutrophils 4.79 10^3/uL (1.2-6.7) 02/02/20 14:06 Absolute Lymphocytes 1.07 10^3/uL (1.2-3.4) L 02/02/20 14:06 Absolute Monocytes 0.47 10^3/uL (0.1-0.8) 02/02/20 14:06 Absolute Eosinophils 0.17 10^3/uL (0.0-0.7) 02/02/20 14:06 Absolute Basophils 0.03 10^3/uL (0.0-0.2) 02/02/20 14:06 Sodium 137 mmol/L (136-145) 02/02/20 14:06 Potassium 4.6 mmol/L (3.5-5.1) 02/02/20 14:06 Chloride 105 mmol/L (98-107) 02/02/20 14:06 Carbon Dioxide 24.9 mmol/L (21.0-32.0) 02/02/20 14:06 Anion Gap 7.1 mmol/L (3-11) 02/02/20 14:06 BUN 22 mg/dL (7-18) H D 02/02/20 14:06 Creatinine 1.19 mg/dL (0.55-1.02) H 02/02/20 14:06 Estimated GFR/1.73 m2 44.22 (mL/min/1.73m2) 02/02/20 14:06 Glucose 225 mg/dL (74-106) H 02/02/20 14:06 Calcium 9.2 mg/dL (8.5-10.1) 02/02/20 14:06 Magnesium 1.7 mg/dL (1.8-2.4) L 02/02/20 14:06 Total Bilirubin 0.6 mg/dL (0.2-1.0) 02/01/20 10:20 AST 21 U/L (15-37) 02/01/20 10:20 ALT 30 U/L (14-59) 02/01/20 10:20 Alkaline Phosphatase 34 U/L (46-116) L 02/01/20 10:20 Troponin I < 0.05 ng/mL (<0.06) 02/01/20 10:20 Total Protein 7.4 g/dL (6.4-8.2) 02/01/20 10:20 Albumin 3.9 g/dL (3.4-5.0) 02/01/20 10:20 Urine Color Yellow (Yellow) 02/01/20 10:55 Urine Clarity Cloudy (Clear) 02/01/20 10:55 Urine pH 6.0 (5-8) 02/01/20 10:55 Ur Specific [place] 1.020 (1.005-1.025) 02/01/20 10:55 Urine Protein 100 mg/dL (Negative) H 02/01/20 10:55 Urine Ketones Negative mg/dL (Negative) 02/01/20 10:55 Urine Blood Small (Negative) H 02/01/20 10:55 Urine Nitrite Negative (Negative) 02/01/20 10:55 Urine Bilirubin Negative (Negative) 02/01/20 10:55 Urine Urobilinogen 1.0 EU/dL (Up TO 0.2) H 02/01/20 10:55 Ur Leukocyte Esterase Large (Negative) H 02/01/20 10:55 Urine RBC 5-10 HPF (0-2) H 02/01/20 10:55 Urine WBC >50 HPF (0-5) H 02/01/20 10:55 Ur Epithelial Cells Rare HPF (Negative) 02/01/20 10:55 Urine Crystals Negative HPF (Negative) 02/01/20 10:55 Urine Bacteria Moderate HPF (Negative) 02/01/20 10:55 Urine Casts 0-2 coarse granular LPF (Negative) 02/01/20 10:55 Urine Mucus Negative (Negative) 02/01/20 10:55 Urine Other Few transitional (Negative) 02/01/20 10:55 Ur Culture Indicated? Yes 02/01/20 10:55 Urine Glucose Negative mg/dL (Negative) 02/01/20 10:55 COVID-19 PCR Negative (Negative) 02/01/20 13:10 Nasopharyn COVID-19 PCR Not Applicable 02/01/20 13:10 Ref Test Perform Site [facility] lab 02/01/20 13:10
[2020-02-02 15:37] VITALS: BP 156/77; PULSE 78; RESP 18; TEMP 35.4; O2SAT 99
[2020-02-03 02:47] VITALS: BP 171/83; PULSE 75; RESP 16; TEMP 36.3; O2SAT 97
[2020-02-03] MEDS: Normal Saline 1,000 ML 80 ML IV (06:08)
[2020-02-03 07:49] VITALS: BP 185/82; PULSE 76; RESP 17; TEMP 36; O2SAT 97
[2020-02-03 08:20] VITALS: O2SAT 97
[2020-02-03] MEDS: diphenhydrAMINE 50 MG/ML VIAL 37.5 MG IVP (11:21)
--- NOTE | 2020-02-03 11:44 | W.PM.PROGNOT ---
Date of Service Date of service: 02/03/20 Time of Service: 11:45 Assessment and Plan Assessment and plan (1) Vascular dementia: Start date: 02/03/20 Start time: 11:52 Status: Acute Assessment and plan: Noted in Dr. Potter record October 2018 Appears worsening since UTI maybe even earlier unclear of timeline and little record., she has paranoia and refusing all treatment at this time. She will ambulate with PT Safety observer at door Qualifiers: Dementia behavioral disturbance: without behavioral disturbance Qualified Code(s): F01.50 - Vascular dementia without behavioral disturbance (2) Ambulatory dysfunction: Start date: 02/03/20 Start time: 11:52 Status: Acute Assessment and plan: Working with PT/OT Could be due to worsening dementia She did recently have treatment for UTI (3) Discharge planning issues: Start date: 02/03/20 Start time: 11:54 Status: Acute Assessment and plan: She will likely need a different living facility [facility], PT/OT. (4) Diabetes mellitus type 2, controlled: Start date: 02/03/20 Start time: 11:55 Status: Acute Assessment and plan: Holding metformin SS insulin correction dosing. Glucose readings in the 140-180's range. Monitor Diabetic diet (5) Hypomagnesemia: Start date: 02/03/20 Start time: 11:55 Status: Acute Assessment and plan: Will recheck in am if patient allows (6) Hyperkalemia: Start date: 02/03/20 Start time: 11:56 Status: Acute Assessment and plan: Resolved Monitor (7) Acute kidney injury: Start date: 02/03/20 Start time: 11:56 Status: Acute Assessment and plan: Cr improved from 1.6 to 1.19, unable to monitor today as she has refused lab 3 times (8) Complicated urinary tract infection: Status: Ruled-out Assessment and plan: Ruled out; <10,000 CFU's growing. Stopped antibiotic. Above case discussed with Dr. Limon who is in agreement. Subjective Subjective Patient reports: other Interval history since last seen: Severely confused, seen by Neuro in the past and diagnosed with vascular dementia. She is very confused, she believes it in the 80's, she is 43, will perseverate on certain topics, she believes on Wednesday she was told she is ok to go, when trying to reorient she will ask change story. At this time she is refusing all lab work, and treatment. She did ambulate with PT. She does continue to say she is being held hostage and she will then state she is here for 3 problems. She believes needs to go back to work. Will try benadryl IV to help her relax. If she is willing to take PO will trial trazodone this evening Exam Const General: cooperative, healthy appearing, comfortable and no acute distress Nutritional Appearance: average body habitus and thin Orientation: alert, awake, oriented to person, oriented to place and other (able to provide some accurate history) [facility] Head: normal to inspection, normocephalic and atraumatic Mouth: oral mucosae normal and moist mucous membranes abnormal (slightly dry) Resp Effort & Inspection: normal respiratory effort Auscultation: clear to auscultation bilaterally Cardio Rate: regular rate Rhythm: regular rhythm Heart Sounds: S1 normal and S2 normal GI Inspection: normal to inspection Palpation: soft Auscultation: normal bowel sounds Skin General skin exam: no rashes or lesions noted Neuro General: patient alert, patient awake, patient oriented x3, moves all extremities and no focal motor deficits Cognition: abnormal cognition (cognitive impairment) Speech: speech normal Gait: shuffling and gait assisted Method: walker Motor: muscle tone normal throughout Extrem General: no clubbing, cyanosis or edema and no pedal edema Psych Appearance: grossly normal Speech and Movement: speech and movement normal Affect: normal affect Thought Process: impoverished Objective Objective Clinical Data: Abnormal lab results 02/01/20 02/02/20 02/02/20 Range/Units 10:55 14:06 14:06 RBC (3.93-5.22) 10^6/uL Hct (36.0-46.0) % MCV (80-95) fL MPV (8.0-11.0) fL Absolute Lymphocytes (1.2-3.4) 10^3/uL BUN 22 H D (7-18) mg/dL Creatinine 1.19 H (0.55-1.02) mg/dL Glucose 225 H (74-106) mg/dL Magnesium 1.7 L (1.8-2.4) mg/dL Urine Protein 100 H (Negative) mg/dL Urine Blood Small H (Negative) Urine Urobilinogen 1.0 H (Up TO 0.2) EU/dL Ur Leukocyte Esterase Large H (Negative) Urine RBC 5-10 H (0-2) HPF Urine WBC >50 H (0-5) HPF 02/02/20 Range/Units 14:06 RBC 3.60 L (3.93-5.22) 10^6/uL Hct 35.1 L (36.0-46.0) % MCV 97.5 H (80-95) fL MPV 11.5 H (8.0-11.0) fL Absolute Lymphocytes 1.07 L (1.2-3.4) 10^3/uL BUN (7-18) mg/dL Creatinine (0.55-1.02) mg/dL Glucose (74-106) mg/dL Magnesium (1.8-2.4) mg/dL Urine Protein (Negative) mg/dL Urine Blood (Negative) Urine Urobilinogen (Up TO 0.2) EU/dL Ur Leukocyte Esterase (Negative) Urine RBC (0-2) HPF Urine WBC (0-5) HPF Vital Signs Temperature 36.0 C L 02/03/20 07:49 Temperature Source Tympanic 02/03/20 07:49 Pulse 76 02/03/20 07:49 Pulse Rhythm Regular 02/03/20 02:46 Pulse 58 L 02/01/20 12:31 Respiratory Rate 17 02/03/20 07:49 Respiratory Effort Non-Labored 02/03/20 02:46 Respiratory Depth Normal 02/03/20 02:46 Respiratory Pattern Normal 02/03/20 02:46 Blood Pressure 185/82 H 02/03/20 07:49 Blood Pressure Mean 83 02/01/20 12:31 Pulse Oximetry 97 02/03/20 07:49 Oxygen Delivery Method Room Air 02/03/20 07:49 Oxygen Flow Rate 0 02/03/20 07:49 Pain Level 0 02/03/20 07:49 Comment 02/03/20 02:47 Intake & Output 02/02/20 02/02/20 02/03/20 11:59 23:59 11:59 Intake Total 1320 / 2420 1100 / 2420 1100 / 1100 Output Total 1870 / 2570 700 / 2570 Balance -550 / -150 400 / -150 1100 / 1100 Weight 53.8 kg Intake: IV 1200 / 2300 1100 / 2300 1000 / 1000 Oral 120 / 120 100 / 100 Output: Urine 1650 / 2350 700 / 2350 Post Void Residual 220 / 220 Other: Urine Color Yellow Yellow Yellow Urine Appearance Clear Clear Clear Urine Odor Normal Normal None Comment pt tolerated activity well patient refused to be bladder scanned Voiding Methods Toilet Toilet Bedside Commode Laboratory Results WBC 6.55 10^3/uL (4.4-10.8) 02/02/20 14:06 RBC 3.60 10^6/uL (3.93-5.22) L 02/02/20 14:06 Hgb 11.3 g/dL (11.2-15.7) 02/02/20 14:06 Hct 35.1 % (36.0-46.0) L 02/02/20 14:06 MCV 97.5 fL (80-95) H 02/02/20 14:06 MCH 31.4 pg (27.0-33.0) 02/02/20 14:06 MCHC 32.2 % (32.0-36.0) 02/02/20 14:06 RDW 11.9 % (11.7-14.6) 02/02/20 14:06 Plt Count 196 10^3/uL (130-400) 02/02/20 14:06 MPV 11.5 fL (8.0-11.0) H 02/02/20 14:06 Immature Gran % 0.3 02/02/20 14:06 Neutrophils % 73.1 02/02/20 14:06 Lymphocytes % 16.3 02/02/20 14:06 Monocytes % 7.2 02/02/20 14:06 Eosinophils % 2.6 02/02/20 14:06 Basophils % 0.5 02/02/20 14:06 Nucleated RBC % 0 % 02/02/20 14:06 Absolute Neutrophils 4.79 10^3/uL (1.2-6.7) 02/02/20 14:06 Absolute Lymphocytes 1.07 10^3/uL (1.2-3.4) L 02/02/20 14:06 Absolute Monocytes 0.47 10^3/uL (0.1-0.8) 02/02/20 14:06 Absolute Eosinophils 0.17 10^3/uL (0.0-0.7) 02/02/20 14:06 Absolute Basophils 0.03 10^3/uL (0.0-0.2) 02/02/20 14:06 Sodium 137 mmol/L (136-145) 02/02/20 14:06 Potassium 4.6 mmol/L (3.5-5.1) 02/02/20 14:06 Chloride 105 mmol/L (98-107) 02/02/20 14:06 Carbon Dioxide 24.9 mmol/L (21.0-32.0) 02/02/20 14:06 Anion Gap 7.1 mmol/L (3-11) 02/02/20 14:06 BUN 22 mg/dL (7-18) H D 02/02/20 14:06 Creatinine 1.19 mg/dL (0.55-1.02) H 02/02/20 14:06 Estimated GFR/1.73 m2 44.22 (mL/min/1.73m2) 02/02/20 14:06 Glucose 225 mg/dL (74-106) H 02/02/20 14:06 Calcium 9.2 mg/dL (8.5-10.1) 02/02/20 14:06 Magnesium 1.7 mg/dL (1.8-2.4) L 02/02/20 14:06 Total Bilirubin 0.6 mg/dL (0.2-1.0) 02/01/20 10:20 AST 21 U/L (15-37) 02/01/20 10:20 ALT 30 U/L (14-59) 02/01/20 10:20 Alkaline Phosphatase 34 U/L (46-116) L 02/01/20 10:20 Troponin I < 0.05 ng/mL (<0.06) 02/01/20 10:20 Total Protein 7.4 g/dL (6.4-8.2) 02/01/20 10:20 Albumin 3.9 g/dL (3.4-5.0) 02/01/20 10:20 Urine Color Yellow (Yellow) 02/01/20 10:55 Urine Clarity Cloudy (Clear) 02/01/20 10:55 Urine pH 6.0 (5-8) 02/01/20 10:55 Ur Specific [place] 1.020 (1.005-1.025) 02/01/20 10:55 Urine Protein 100 mg/dL (Negative) H 02/01/20 10:55 Urine Ketones Negative mg/dL (Negative) 02/01/20 10:55 Urine Blood Small (Negative) H 02/01/20 10:55 Urine Nitrite Negative (Negative) 02/01/20 10:55 Urine Bilirubin Negative (Negative) 02/01/20 10:55 Urine Urobilinogen 1.0 EU/dL (Up TO 0.2) H 02/01/20 10:55 Ur Leukocyte Esterase Large (Negative) H 02/01/20 10:55 Urine RBC 5-10 HPF (0-2) H 02/01/20 10:55 Urine WBC >50 HPF (0-5) H 02/01/20 10:55 Ur Epithelial Cells Rare HPF (Negative) 02/01/20 10:55 Urine Crystals Negative HPF (Negative) 02/01/20 10:55 Urine Bacteria Moderate HPF (Negative) 02/01/20 10:55 Urine Casts 0-2 coarse granular LPF (Negative) 02/01/20 10:55 Urine Mucus Negative (Negative) 02/01/20 10:55 Urine Other Few transitional (Negative) 02/01/20 10:55 Ur Culture Indicated? Yes 02/01/20 10:55 Urine Glucose Negative mg/dL (Negative) 02/01/20 10:55 COVID-19 PCR Negative (Negative) 02/01/20 13:10 Nasopharyn COVID-19 PCR Not Applicable 02/01/20 13:10 Ref Test Perform Site [facility] lab 02/01/20 13:10
--- NOTE | 2020-02-03 11:50 | PDOC.CMPRO ---
Care Management Progress Note S/O: Suni was sitting up in her chair, just having returned from working with PT when CM met with her. She was quite pleasant in interaction but did share some concerns that appeared to be delusionary based. She reported believing that [facility] was the hospital side of [place] and she expressed not feeling comfortable taking her medications. She reported at [place], the medication were bubble packed. She appeared to be struggling with the change in location and loss of daily structure that she has adjusted to at [place]. CM requested Neuro and Psych consults to inform best treatment recommendations for Suni moving forward. CM faxed referrals to [facility], [facility] and [facility] for review. Suni requires consistent support but is pleasant and agreeable with staff requests. A: 74 year old female admitted to [facility] 02/01/20 for UTI, TAMIKA P: Suni will require further evaluation to determine best mode of treatment. Anticipate Neurology, Psychiatry and Palliative consults. As Suni is no longer independent with ADLs, her return to [place] is unlikely at this time. CM has begun seeking placement at [facility] and [facility] (for further evaluation). CM will continue attempts to connect with Suni's sister and DPOA to determine financial picture and agent wishes as well.
--- NOTE | 2020-02-03 14:24 | PTTR_ITS ---
Date of service: 02/03/20 Time of Service: 10:40 PT Notes Visit Reasons: URINARY TRACT INFECTION, ACUTE KIDNEY INJURY, HYPE Inpatient Physical Therapy Treatment Note [facility] Date: 02/03/2020 PRECAUTIONS:Fall, Standard, Activity as tolerated SUBJECTIVE: Stated she is being bugged by bad people from her past and the police. OBJECTIVE: PAIN: No complaints of pain offered. BED MOBILITY/TRANSFERS Sit-stand: CGA Stand-sit: CGA GAIT Assistive Device: SPA and S[employer] Weight bearing: Full Assist: CGA Distance: 200ft, continued cueing to continue walking. Wanted to stand and talk. ASSESSMENT: Tolerated today's ambulation well. Very confused PLAN: Continue to encourage functional mobility. TREATMENT CODE/TIME: 92127 x 1 (20'), 10:40 to 11:00
[2020-02-03] MEDS: LORazepam 2 MG/ML VIAL 1 MG IVP (17:25)
--- NOTE | 2020-02-04 09:54 | NUR.NOTE ---
Nursing Note: Pt is being verbally abusive to staff, telling staff to go fuck yourself. She is trying to bite her fingers and pulling it IV line. Pt wants to be left alone. Agitated, resistive to care @ this time. Pt sitting up in chair safely @ this time with [employer] outside of door. Refused all medications, inclusing tylenol when offered. Refused VS, finger stick, and physical assessment this morning. Will reattempt assessment @ a later time.
--- NOTE | 2020-02-04 10:12 | W.PM.PROGNOT ---
Date of Service Date of service: 02/04/20 Time of Service: 10:12 Assessment and Plan Assessment and plan (1) Vascular dementia: Start date: 02/04/20 Status: Acute Assessment and plan: Noted in Dr. Potter record October 2018 Appears worsening since UTI maybe even earlier unclear of timeline and little record., she has paranoia and refusing all treatment at this time. She is combative this morning. She is refusing all care and medications. Will order ativan 1 mg prn for agitation, awaiting palliative recommendations Safety observer at door Qualifiers: Dementia behavioral disturbance: without behavioral disturbance Qualified Code(s): F01.50 - Vascular dementia without behavioral disturbance (2) Ambulatory dysfunction: Start date: 02/04/20 Start time: 10:16 Status: Acute Assessment and plan: Working with PT/OT Could be due to worsening dementia She did recently have treatment for UTI she was ambulatory in the hallway yesterday and appeared to be doing well with ambulation (3) Discharge planning issues: Start date: 02/04/20 Start time: 10:16 Status: Acute Assessment and plan: She will likely need a different living facility and given her behaviour she may be difficult to place at this time. Soc Services, PT/OT. (4) Diabetes mellitus type 2, controlled: Start date: 02/04/20 Start time: 10:20 Status: Acute Assessment and plan: Holding metformin SS insulin correction dosing. Glucose readings in the 140-180's range. Monitor Diabetic diet (5) Hypomagnesemia: Start date: 02/04/20 Start time: 10:20 Status: Acute Assessment and plan: Patient not cooperative with lab draws (6) Hyperkalemia: Start date: 02/04/20 Start time: 10:20 Status: Resolved Assessment and plan: Unable to monitor d/t refusal for lab draw. Will repeat if patient allows. (7) Acute kidney injury: Start date: 02/04/20 Start time: 10:21 Status: Acute Assessment and plan: Unable to monitor as patient is refusing labs. Will d/c IVF (8) Complicated urinary tract infection: Start date: 02/04/20 Start time: 10:28 Status: Ruled-out Assessment and plan: Ruled out; <10,000 CFU's growing. Stopped antibiotic. Above case discussed with Dr. Limon who is in agreement. Subjective Subjective Patient reports: other Interval history since last seen: Per nursing patient has been very combative refusing all care and not wanting to cooperate. At this time she is sleeping. Will not wake her due to behaviours. She does not appear to be in any distress. Exam Narrative Exam Narrative: Visual inspection of patient, she appears to be sleeping in the chair. No acute distress. Breathing without difficulty, no wheezing or rales heard from the doorway. Due to behaviour will observe and not wake. She does not appear to have any edema or rashes. Objective Objective Clinical Data: Vital Signs Temperature 36.0 C L 02/03/20 07:49 Temperature Source Tympanic 02/03/20 07:49 Pulse 76 02/03/20 07:49 Pulse Rhythm Regular 02/04/20 01:52 Pulse 58 L 02/01/20 12:31 Respiratory Rate 17 02/03/20 07:49 Respiratory Effort 02/04/20 10:00 Respiratory Depth Normal 02/04/20 01:52 Respiratory Pattern Normal 02/04/20 01:52 Blood Pressure 185/82 H 02/03/20 07:49 Blood Pressure Mean 83 02/01/20 12:31 Pulse Oximetry 97 02/03/20 08:20 Oxygen Delivery Method Room Air 02/03/20 08:20 Oxygen Flow Rate 0 02/03/20 08:20 Pain Level 0 02/03/20 07:49 Comment 02/04/20 08:59 Intake & Output 02/03/20 02/03/20 02/04/20 11:59 23:59 11:59 Intake Total 1100 / 1889.333 789.333 / 1889.333 0 / 0 Output Total 300 / 900 600 / 900 Balance 800 / 989.333 189.333 / 989.333 0 / 0 Intake: IV 1000 / 1789.333 789.333 / 1789.333 0 / 0 Oral 100 / 100 0 / 100 Output: Urine 300 / 900 600 / 900 Other: Urine Color Yellow Yellow Yellow Urine Appearance Clear Clear Clear Urine Odor None Normal Normal Comment patient refused Moderate amount of urine in diaper. refused Voiding Methods Bedside Commode Diaper Diaper Incontinent Laboratory Results WBC 6.55 10^3/uL (4.4-10.8) 02/02/20 14:06 RBC 3.60 10^6/uL (3.93-5.22) L 02/02/20 14:06 Hgb 11.3 g/dL (11.2-15.7) 02/02/20 14:06 Hct 35.1 % (36.0-46.0) L 02/02/20 14:06 MCV 97.5 fL (80-95) H 02/02/20 14:06 MCH 31.4 pg (27.0-33.0) 02/02/20 14:06 MCHC 32.2 % (32.0-36.0) 02/02/20 14:06 RDW 11.9 % (11.7-14.6) 02/02/20 14:06 Plt Count 196 10^3/uL (130-400) 02/02/20 14:06 MPV 11.5 fL (8.0-11.0) H 02/02/20 14:06 Immature Gran % 0.3 02/02/20 14:06 Neutrophils % 73.1 02/02/20 14:06 Lymphocytes % 16.3 02/02/20 14:06 Monocytes % 7.2 02/02/20 14:06 Eosinophils % 2.6 02/02/20 14:06 Basophils % 0.5 02/02/20 14:06 Nucleated RBC % 0 % 02/02/20 14:06 Absolute Neutrophils 4.79 10^3/uL (1.2-6.7) 02/02/20 14:06 Absolute Lymphocytes 1.07 10^3/uL (1.2-3.4) L 02/02/20 14:06 Absolute Monocytes 0.47 10^3/uL (0.1-0.8) 02/02/20 14:06 Absolute Eosinophils 0.17 10^3/uL (0.0-0.7) 02/02/20 14:06 Absolute Basophils 0.03 10^3/uL (0.0-0.2) 02/02/20 14:06 Sodium 137 mmol/L (136-145) 02/02/20 14:06 Potassium 4.6 mmol/L (3.5-5.1) 02/02/20 14:06 Chloride 105 mmol/L (98-107) 02/02/20 14:06 Carbon Dioxide 24.9 mmol/L (21.0-32.0) 02/02/20 14:06 Anion Gap 7.1 mmol/L (3-11) 02/02/20 14:06 BUN 22 mg/dL (7-18) H D 02/02/20 14:06 Creatinine 1.19 mg/dL (0.55-1.02) H 02/02/20 14:06 Estimated GFR/1.73 m2 44.22 (mL/min/1.73m2) 02/02/20 14:06 Glucose 225 mg/dL (74-106) H 02/02/20 14:06 Calcium 9.2 mg/dL (8.5-10.1) 02/02/20 14:06 Magnesium 1.7 mg/dL (1.8-2.4) L 02/02/20 14:06 Total Bilirubin 0.6 mg/dL (0.2-1.0) 02/01/20 10:20 AST 21 U/L (15-37) 02/01/20 10:20 ALT 30 U/L (14-59) 02/01/20 10:20 Alkaline Phosphatase 34 U/L (46-116) L 02/01/20 10:20 Troponin I < 0.05 ng/mL (<0.06) 02/01/20 10:20 Total Protein 7.4 g/dL (6.4-8.2) 02/01/20 10:20 Albumin 3.9 g/dL (3.4-5.0) 02/01/20 10:20 Urine Color Yellow (Yellow) 02/01/20 10:55 Urine Clarity Cloudy (Clear) 02/01/20 10:55 Urine pH 6.0 (5-8) 02/01/20 10:55 Ur Specific [place] 1.020 (1.005-1.025) 02/01/20 10:55 Urine Protein 100 mg/dL (Negative) H 02/01/20 10:55 Urine Ketones Negative mg/dL (Negative) 02/01/20 10:55 Urine Blood Small (Negative) H 02/01/20 10:55 Urine Nitrite Negative (Negative) 02/01/20 10:55 Urine Bilirubin Negative (Negative) 02/01/20 10:55 Urine Urobilinogen 1.0 EU/dL (Up TO 0.2) H 02/01/20 10:55 Ur Leukocyte Esterase Large (Negative) H 02/01/20 10:55 Urine RBC 5-10 HPF (0-2) H 02/01/20 10:55 Urine WBC >50 HPF (0-5) H 02/01/20 10:55 Ur Epithelial Cells Rare HPF (Negative) 02/01/20 10:55 Urine Crystals Negative HPF (Negative) 02/01/20 10:55 Urine Bacteria Moderate HPF (Negative) 02/01/20 10:55 Urine Casts 0-2 coarse granular LPF (Negative) 02/01/20 10:55 Urine Mucus Negative (Negative) 02/01/20 10:55 Urine Other Few transitional (Negative) 02/01/20 10:55 Ur Culture Indicated? Yes 02/01/20 10:55 Urine Glucose Negative mg/dL (Negative) 02/01/20 10:55 COVID-19 PCR Negative (Negative) 02/01/20 13:10 Nasopharyn COVID-19 PCR Not Applicable 02/01/20 13:10 Ref Test [facility] 02/01/20 13:10
--- NOTE | 2020-02-04 10:57 | CMPROGNOTE_ITS ---
Care Management Progress Note S/O: Suni continues to be pleasantly confused and is struggling with the change in location and loss of daily structure that she has adjusted to at [place]. CM requested Neuro and Psych consults to inform best treatment recommendations for Suni moving forward; per discussion with provider, Palliative consult will take precedent with treatment management recommendations at this time. Suni was sitting up in her chair, and pleasantly greeted this life insurance underwriter. CM continues to follow. CM faxed referrals to [facility], [facility] and [facility] for review. Suni requires consistent support but is pleasant and agreeable with staff requests. A: 74 year old female admitted to [facility] 02/01/20 for UTI, TAMIKA P: Suni will require further evaluation to determine best mode of treatment. Palliative consult faxed; anticipate availability on Wednesday. As Suni is no longer independent with ADLs, her return to [place] is unlikely at this time. CM has begun seeking placement at [facility] and [facility] (for further evaluation). CM will continue attempts to connect with Suni's sister and DPOA to determine financial picture and agent wishes as well.
--- NOTE | 2020-02-04 11:44 | PT.INTREAT ---
Date of service: 02/04/20 Time of Service: 11:40 PT Notes Visit Reasons: URINARY TRACT INFECTION, ACUTE KIDNEY INJURY, HYPE 02/04/2020 Attempted to work with patient three times today but she was unwilling to participate due to confusion. Kylah Ramirez, MARKETING SENIOR RECRUITER
[2020-02-04] MEDS: traZODone 50 MG TAB PO (12:17)
[2020-02-04 15:20] VITALS: BP 186/102; PULSE 94; RESP 17; TEMP 36.5; O2SAT 98
[2020-02-04] MEDS: amLODIPine 10 MG TAB PO (15:30)
[2020-02-04 16:11] LABS: HCT 37.5 % (36.0-46.0); HGB 12.1 g/dL (11.2-15.7); MCH 31.4 pg (27.0-33.0); MCHC 32.3 % (32.0-36.0); MCV 97.4 fL (80-95); MPV 11.5 fL (8.0-11.0); Platelet Count 219 10^3/uL (130-400); RBC 3.85 10^6/uL (3.93-5.22); RDW 11.9 % (11.7-14.6); RDW-SD 42.5 fL; WBC 7.56 10^3/uL (4.4-10.8)
[2020-02-04] MEDS: Insulin Aspart 300 UNITS/3 ML PEN SC (16:42)
--- NOTE | 2020-02-04 17:35 | NUR.NOTE ---
Nursing Note:Pt still confused and disoriented, but has been more pleasant and agreeable to nursing interventions and help with personal care as shift has progressed.
[2020-02-04 17:44] VITALS: BP 149/83
--- NOTE | 2020-02-05 00:14 | NUR.NOTE ---
Nursing Note: Pt is being resistant to care, pt refused to be assess, refused finger stick and refused to take her medicines
[2020-02-05 07:45] VITALS: BP 168/83; PULSE 87; RESP 17; TEMP 36.8; O2SAT 94
--- NOTE | 2020-02-05 09:16 | OTIE_ITS ---
Occupational Therapy Notes Inpatient Occupational Therapy Evaluation Date: 02/05/20 Referring Doctor:Trang Arenas NP OT Orders: Non-Urgent Precautions: Fall, Standard, DNR/DNI PATIENT PROFILE/ADMITTING DIAGNOSIS: Pt is a 74 year old female who presented to the ER with c/o UTI, acute kidney injury, hyperkalemia, hypomagnesemia, and Type II DM. She is currently admitted to [facility]. 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 She states that she has (A) with her ADLs and that some times she uses a cane and others she doesn't. Pt is poor historian which makes it hard to establish pts baseline level of function. She at one point states that she requires a lot of (A) and at others she notes that she would like as much (I) in her ADL routines as possible. Equipment owned/DME: Met per [facility] SUBJECTIVE: Pt was sitting in chair when OT arrived. She was agreeable to OT session and was agreeable to answer questions to determine her baseline level of function. OBJECTIVE: General Observation: Sits in forward slumped position, rounded shoulders and is confused. OT did attempt to see pt earlier this morning and pt was slightly agitated. She was able to answer all questions asked per OT, it is unclear is this is pts actual baseline. IV (R) UE covered in stockinette. Mental Status: Alert to name and age. Pt is confused she is not sure if she is in a house or in the hospital. She thinks that the owens are wired and talking to her. She also reports that she is concerned that she has not heard from her sister. Then notes that she spoke with her sister yesterday. Pain: no c/o pain ROM: RUE AROM WFL L UE AROM WFL STRENGTH: RUE Shoulder flexion 3-/5, bicep/tricep 3/5, industrial methods consultant is weak and symmetrical LUE Shoulder flexion 3-/5, bicep/tricep 4/5, industrial methods consultant is weak and symmetrical SENSATION: Intact (B) UE FUNCTIONAL MOBILITY/ADLS: BATHING Pt denies bathing routine as she is uncomfortable right now per her report and would like to wait till tomorrow. With mod vc OT was able to assess her AROM which is WFL required for her bathing routine. DRESSING sitting in chair with mod vc Dressing UE Pt denies don and doffing [facility] gown Dressing LE Sitting in chair she was able to don and doff her socks (I) GROOMING Sitting in chair with mod vc (I) with brushing hair TOILETING NT EATING OT came into pts room after she was eating her breakfast, She was able to perform this (I) sitting in chair. BALANCE: Static sitting Normal Dynamic Sitting Good SPECIAL TESTS: Daily Activity Limitations Standardized Measure [facility] AM -PAC ?6 clicks? Daily Activity Inpatient Short Form: Raw score: 20 Standardized score: 42.03 CMS score: 38.32% INFORMED CONSENT/EDUCATION: Pt instructed in purpose of OT Consult and plan of care. ASSESSMENT: Patient is a 74-year-old female referred to occupational therapy services with diagnosis of UTI, acute kidney injury, hyperkalemia, hypomagnesemia, Type II DM. Patient presents with clinical signs and symptoms consistent with dx and confusion, as demonstrated by the following impairment level findings: Decreased functional activity tolerance, decreased functional mobility required for ADL/IADL routines, decreased performance of standing ADLs. Impairments are contributing to the following functional limitations: Inability to perform his ADL/IADL at her baseline level of function, decreased cognitive function, decreased functional activity tolerance, inability to perform her standing ADLs without (A), inability to perform her ADLs without mod-max vc due to decline in cognition. AMPAC score 20 Patient is assessed as a high 43455 complexity based on the following: History: see above Examination: see functional limitations as noted above Presentation: Evolving Decision Making: AMPAC score 20 GOALS Goals x1 week 1. Transfers with FWW (S) 2. Dressing sitting in chair (I) with shirt and pants 3. Bathing sitting in chair pt will be (I) with UE/LE 4. Toileting on toilet with min (A) 5. Eating (I) PLAN OF CARE/TREATMENT PLAN: 1x/day, 5 days/ week x 1week Initiate Occupational Therapy Services for bathing, dressing, grooming, toileting, eating, transfer training. DISCHARGE RECOMMENDATIONS Based on pts current level of function and decreased cognitive function, decreased safety awareness and decreased functional (I) in her ADL/IADL routines OT recommends that pt go to SNF vs. LTC. TREATMENT TIME/MINUTES/CODES 80619, 30 minutes (08:40) Lindsey Miller, OTR/[facility]
--- NOTE | 2020-02-05 10:14 | PT.INNT ---
Date of service: 02/05/20 Time of Service: 10:14 PT Notes Visit Reasons: URINARY TRACT INFECTION, ACUTE KIDNEY INJURY, HYPE 02/05/2020 Patient refused morning PT session, stating that she does not like to walk. Patient continues to present as confused. Will attempt to resume PT this afternoon.
[2020-02-05] MEDS: LORazepam 2 MG/ML VIAL 1 MG IVP (10:42)
--- NOTE | 2020-02-05 11:42 | CMPROGNOTE_ITS ---
Care Management Progress Note S/O: Suni continues to be pleasantly confused and is struggling with the change in location and loss of daily structure that she has adjusted to at [place]. Palliative consult; Dr. Ladd reports she will follow up with Suni at the [facility]. CM spoke with Megan, Suni's sister who reports her preference is for Suni to go to the [facility]. She reports Suni's income at approx. $4000/mth between her senior living coverage, [employer] pension and income. Email contact provided for [place] terminal computer operator coverage; CM sent email requesting coverage details to provide to the [facility]. Megan reports [place] has all information regarding senior living coverage; but Tyrese is out today and was unable to access. KHANH continues to follow. Jocelyne AGUILA#[phone] called; reported no bed availability and stated she was out the rest of today but would like to case review referral as discharges are anticipated later this week. KHANH will connect with Jocelyne regarding case review when Jocelyne is available. A: 74 year old female admitted to [facility] 02/01/20 for UTI, TAMIKA P: As Suni is no longer independent with ADLs, her return to [place] is unlikely at this time. Suni will participate in Palliative Consult with her Dr. Ladd at [facility] post discharge. [facility] offered Suni a bed and are in process of prior-authorizing her insurance. Anticipate she may transfer as soon as tomorrow.
--- NOTE | 2020-02-05 11:42 | PDOC.CMPRO ---
Care Management Progress Note S/O: Suni continues to be pleasantly confused and is struggling with the change in location and loss of daily structure that she has adjusted to at [place]. Palliative consult; Dr. Ladd reports she will follow up with Suni at the [facility]. CM spoke with Megan, Suni's sister who reports her preference is for Suni to go to the [facility]. She reports Suni's income at approx. $4000/mth between her fpc coverage, [employer] pension and income. Email contact provided for [employer] long term care pharmacist coverage; CM sent email requesting coverage details to provide to the [facility]. Megan reports [place] has all information regarding fpc coverage; but Tyrese is out today and was unable to access. KHANH continues to follow. Jocelyne AGUILA#[phone] called; reported no bed availability and stated she was out the rest of today but would like to case review referral as discharges are anticipated later this week. KHANH will connect with Jocelyne regarding case review when Jocelyne is available. A: 74 year old female admitted to [facility] 02/01/20 for UTI, TAMIKA P: As Suni is no longer independent with ADLs, her return to [place] is unlikely at this time. Suni will participate in Palliative Consult with her Dr. Ladd at [facility] post discharge. [facility] offered Suni a bed and are in process of prior-authorizing her insurance. Anticipate she may transfer as soon as tomorrow.
--- NOTE | 2020-02-05 12:41 | PTTR_ITS ---
Date of service: 02/05/20 Time of Service: 12:41 PT Notes Visit Reasons: URINARY TRACT INFECTION, ACUTE KIDNEY INJURY, HYPE Inpatient Physical Therapy Treatment Note [facility] Date: 02/05/2020 PRECAUTIONS: Fall SUBJECTIVE: Suni is agreeable to walking to the bathroom with assist. OBJECTIVE: Per nsg, patient medicated with Ativan prior to PT session, which is potentially contributing to confusion and affect. PAIN: No c/o pain BED MOBILITY/TRANSFERS Sit-stand: Mod A x2 Stand-sit: Mod A x2 Bed-Chair: Mod A x2 Chair-bed: Mod A x2 GAIT Assistive Device: RING CUTTER LATHE OPERATOR x2 Weight bearing: Full Assist: Mod A x2 Distance: 10' x2 Deviation: Max cueing due to confusion TOILETING: Patient toileted requiring Max A x2 ASSESSMENT: Patient demonstrates increased confusion today. She requires max cueing with short distance ambulation, as well as RING CUTTER LATHE OPERATOR x2 for safety. PLAN: Continue with global strengthening, as appropriate TREATMENT CODE/TIME: 10 minutes; [id number]
[2020-02-05 15:30] LABS: Anion Gap 10.2 mmol/L (3-11); BUN 18 mg/dL (7-18); CO2 24.8 mmol/L (21.0-32.0); CREATININE 0.91 mg/dL (0.55-1.02); Calcium 9.5 mg/dL (8.5-10.1); Chloride 106 mmol/L (98-107); Glucose 264 mg/dL (74-106); Potassium 4.1 mmol/L (3.5-5.1); Sodium 141 mmol/L (136-145)
[2020-02-05 16:14] VITALS: BP 154/78; PULSE 86; RESP 18; TEMP 37.1; O2SAT 95
--- NOTE | 2020-02-05 16:17 | W.PM.PROGNOT ---
Date of Service Date of service: 02/05/20 Time of Service: 16:17 Assessment and Plan Assessment and plan (1) Vascular dementia: Start date: 02/05/20 Start time: 16:22 Status: Acute Assessment and plan: Continues to be combative and refusing care Possible discharge to [facility] Repeat Covid Qualifiers: Dementia behavioral disturbance: without behavioral disturbance Qualified Code(s): F01.50 - Vascular dementia without behavioral disturbance (2) Ambulatory dysfunction: Start date: 02/05/20 Start time: 16:23 Status: Acute Assessment and plan: Working with PT/OT Could be due to worsening dementia She did recently have treatment for UTI She does ambulate well when she wants to. (3) Discharge planning issues: Start date: 02/05/20 Start time: 16:24 Status: Acute Assessment and plan: She will likely need a different living facility and given her behaviour she may be difficult to place at this time. Soc Services, PT/OT. (4) Diabetes mellitus type 2, controlled: Start date: 02/05/20 Start time: 16:24 Status: Acute Assessment and plan: Holding metformin SS insulin correction dosing. Glucose readings in the up to 276. Monitor Diabetic diet (5) Hypomagnesemia: Start date: 02/05/20 Start time: 16:25 Status: Acute Assessment and plan: Patient not cooperative with lab draws (6) Hyperkalemia: Start date: 02/05/20 Start time: 16:25 Status: Resolved Assessment and plan: potassium 4.1 yesterday. (7) Acute kidney injury: Start date: 02/05/20 Start time: 16:25 Status: Resolved Assessment and plan: Patient allowed for lab draw yesterday evening. Renal function normal (8) Complicated urinary tract infection: Start date: 02/05/20 Start time: 16:26 Status: Ruled-out Assessment and plan: Ruled out; <10,000 CFU's growing. Stopped antibiotic. Above case discussed with Dr. Limon who is in agreement. Subjective Subjective Patient reports: other Interval history since last seen: Continues to refuse care, combative at times. Does think she is in other places, like waiting for a flight or taking a trip. She is eating and drinking, does work with PT otherwise does not want to cooperate with care or take medication, very suspicious of everyone. Exam Narrative Exam Narrative: Visual inspection of patient, she appears to be sleeping in the chair. No acute distress. Breathing without difficulty, no wheezing or rales heard from the doorway. Due to behaviour will observe and not wake. She does not appear to have any edema or rashes. Objective Last Vital Signs Temp 36.8 C 02/05/20 07:45 Pulse 87 02/05/20 07:45 Resp 17 02/05/20 07:45 BP 168/83 H 02/05/20 07:45 Pulse Ox 94 02/05/20 07:45 Laboratory Results - last 24 hr 02/04/20 15:42 Sodium 141 Potassium 4.1 Chloride 106 Carbon Dioxide 24.8 Anion Gap 10.2 BUN 18 Creatinine 0.91 Estimated GFR/1.73 m2 >= 60.00 Glucose 264 H Calcium 9.5
[2020-02-06] MEDS: Haloperidol 5 MG/ML VIAL 2 MG IM (08:20)
[2020-02-06 08:23] VITALS: BP 152/89; PULSE 87; RESP 20; TEMP 36.7; O2SAT 97
--- NOTE | 2020-02-06 08:34 | OT.INTREAT ---
Date of service: 02/06/20 Time of Service: 07:50 Occupational Therapy Notes Occupational Therapy Inpatient Treatment Note Date: 02/06/20 PRECAUTIONS: Fall, Standard, DNR/DNI SUBJECTIVE: Pt was sitting in chair when OT arrived. She was agreeable to OT session and states that she is so happy to see OT this morning. OBJECTIVE: PAIN: no c/o pain BATHING: sitting in chair with max (A) set up/clean up Upper Body: mod (A) hair, min (A) (B) UE, (I) abdomen with mod vc throughout and verbal support throughout Lower Body: Mod (A) with (B) LE with mod vc DRESSING: sitting in chair Upper Extremity: Min (A) don and doffing hospital gown Lower Extremity: (I) don and doffing (B) socks with min vc GROOMING: sitting in chair (I) with brushing hair EATING: sitting in chair min (A) with opening containers, cutting food, (I) with food to mouth ASSESSMENT/PLAN: Pt was an active participant in todays session. She was hesitant at first and reports her distrust for people in the hospital setting but states that was interested in getting washing up. She did require step by step instructions and mod vc throughout. OT will continue to work with pt to perform her ADLs at sink in the standing position. TREATMENT CODES/TIME: [id number], 35 minutes (07:50) Lindsey Miller OTR/[facility]
--- NOTE | 2020-02-06 13:17 | PGE_ITS ---
Date of Service Date of service: 02/06/20 Time of Service: 13:18 Assessment and Plan Assessment and plan (1) Vascular dementia: Status: Acute Assessment and plan: Continues to be combative and refusing care Possible discharge to [facility], case management following Repeat Covid pending, was negative on admission Qualifiers: Dementia behavioral disturbance: without behavioral disturbance Qualified Code(s): F01.50 - Vascular dementia without behavioral disturbance (2) Complicated urinary tract infection: Status: Ruled-out Assessment and plan: will try to repeat urine to evaluate for clearance of infection grew less than <10,000 pseudomonas which was sensitive to imipenem she has received (one dose). (3) Diabetes mellitus type 2, controlled: Status: Acute Assessment and plan: A1C was 7.4 last week, down from 11.1 last spring. continue diabetic diet, not taking metformin. check blood sugars ac/hs and sliding scale coverage as needed. (4) Ambulatory dysfunction: Status: Acute Assessment and plan: fall precautions PT/OT (5) DVT prophylaxis: Status: Acute Assessment and plan: heparin teds and scds (6) Discharge planning issues: Status: Acute Assessment and plan: case management consulted. will most likely need higher level of care. discussed with DR ash who is in agreement Subjective Subjective Interval history since last seen: refusing meals, medications, most care. has been hemodynamically stable with no fevers. no respiratory symptoms noted. unable to obtain review of systems as she won't cooperate. Exam Const General: comfortable, no acute distress, anxious, combative and frail appearing Nutritional Appearance: average body habitus Orientation: alert, awake and confused Limitations: behavioral limitations and other limitations (advanced dementia) [facility] Head: normal to inspection, normocephalic and atraumatic Resp Effort & Inspection: normal respiratory effort Cardio Other: pink warm dry and well perfused GI Inspection: normal to inspection Palpation: soft Neuro General: patient alert, patient awake, moves all extremities and patient confused Extrem General: no pedal edema Psych Appearance: disheveled Mental Status: other Mood: other Attitude: belligerent Thought Process: other (demented) Insight: poor Judgment: poor Objective Last Vital Signs Temp 36.7 C 02/06/20 08:23 Pulse 87 02/06/20 08:23 Resp 20 02/06/20 08:23 BP 152/89 H 09/15/20 08:23 Pulse Ox 97 02/06/20 08:23 Laboratory Results - last 24 hr 02/04/20 15:42 Sodium 141 Potassium 4.1 Chloride 106 Carbon Dioxide 24.8 Anion Gap 10.2 BUN 18 Creatinine 0.91 Estimated GFR/1.73 m2 >= 60.00 Glucose 264 H Calcium 9.5
--- NOTE | 2020-02-06 15:42 | PDOC.CMPRO ---
- If Service Date Differs Date of service: 02/06/20 Time of Service: 15:42 Care Management Progress Note S/O: Suni was confused and agitated this morning, refusing medication and incontinence care. She did receive a one time dose of Haldol. KHANH reviewed clinicals with Irene, RN at the [facility]. Plan will be to hold off use of Haldol or Seroquel, redirect behaviors and reassess patient in the morning. If Suni remains stable overnight [facility] may accept her in the morning. This afternoon Suni is alert, she is corporative and allowing care. New medications started to manage symptom of pain and discomfort in hopes that Suni will be more comfortable and be able to transition to the [facility] on Wednesday. A: 74 year old female admitted to [facility] 02/01/20 for UTI, TAMIKA P: Suni will be discharged to the [facility] when medically ready. Patient to transport via ambulance at time of discharge. Repeat COVID is pending.
[2020-02-06] MEDS: fentaNYL 12 MCG PATCH TD (16:23)
[2020-02-06 18:56] LABS: Bilirubin Negative (Negative); Blood Trace-intact (Negative); Clarity Clear (Clear); Glucose 500 mg/dL (Negative); Ketones Trace mg/dL (Negative); Leukocyte Esterase Negative (Negative); Nitrite Negative (Negative); Specific Gravity >= 1.030 (1.005-1.025); Urobilinogen 0.2 EU/dL (Up TO 0.2); pH 5.5 (5-8)
[2020-02-06 19:01] LABS: C & S Indicated? No/Sq. Contamination; Casts Negative LPF (Negative); Crystals Negative HPF (Negative); Epithelial Cells Moderate HPF (Negative); Mucus Negative (Negative); Other Cells Negative (Negative); WBC 20-50 HPF (0-5)
[2020-02-06 23:01] LABS: COVID-19 RT-PCR UVMMC Result Negative (Negative)
[2020-02-07 06:29] LABS: Bacteria Few HPF (Negative)
--- NOTE | 2020-02-07 07:53 | OTTR_ITS ---
Date of service: 02/07/20 Time of Service: 07:15 Occupational Therapy Notes Occupational Therapy Inpatient Treatment Note Date: 02/07/20 PRECAUTIONS: Fall, Standard, DNR/DNI SUBJECTIVE: Pt was pleasant and agreeable to OT session. She reports that she is tired and thinks that she is leaving today but is unsure. She is confused at times but always very pleasant with OT. OBJECTIVE: PAIN:no c/o pain FUNCTIONAL MOBILITY Sit-stand: CGA, FWW Stand-sit: Mod vc, CGA, FWW Bed-Chair: Mod vc, CGA, FWW Chair-bed: Mod vc, CGA, FWW BATHING: Standing at sink with FWW, mod vc and CGA Upper Body: (I) with washing face, (B) underarms and pt denies all other bathing DRESSING: Sitting in chair with step by step instructions Upper Extremity: Mod (A) don and doffing sweatshirt Lower Extremity: (I) don and doffing (B) socks GROOMING: standing at sink with FWW and step by step instructions Min (A) with brushing teeth TOILETING: Device: on toilet Assist: (I) with vc throughout ASSESSMENT/PLAN: Pt was receptive to OT session. She was an active participant and willing to perform her ADLs standing at the sink. She is very distrustful of people who may hurt her but with conversation and encouragement she is willing to participate. OT will continue to work with pt towards standing ADLs and increased functional activity tolerance. TREATMENT CODES/TIME: [id number], 35 minutes (07:15) Lindsey Miller OTR/[facility]
[2020-02-07 07:58] VITALS: BP 178/90; PULSE 84; RESP 20; TEMP 36.2; O2SAT 97
[2020-02-07] MEDS: Insulin Aspart 300 UNITS/3 ML PEN SC (08:36)
[2020-02-07] MEDS: amLODIPine 10 MG TAB PO (08:36)
[2020-02-07] MEDS: Atorvastatin 40 MG TAB 80 MG PO (08:36)
[2020-02-07] MEDS: Esomeprazole 40 MG CAPCR PO (08:36)
[2020-02-07] MEDS: Aspirin E.C. 81 MG TABEC PO (08:36)
--- NOTE | 2020-02-07 11:05 | W.PM.DS.N ---
Date of service: 02/07/20 Time of Service: 11:06 DS: Diagnosis Discharge Diagnosis (1) Vascular dementia: Status: Acute (2) Complicated urinary tract infection: Status: Ruled-out (3) Diabetes mellitus type 2, controlled: Status: Acute (4) Ambulatory dysfunction: Status: Acute Discharge Plan Disposition Patient Disposition: HOME Condition: Fair Discharge Details Reason For Visit: URINARY TRACT INFECTION, ACUTE KIDNEY INJURY, HYPE Admit Date/Time: 02/01/20 12:07 Admit Provider: Diomedes Rosa Attending Provider: Diomedes Rosa Primary Care Provider: Edna Cortez Hospital Course Hospital Course: This is a 74-year-old female patient With past medical history of dementia recently treated for urinary tract infection with Bactrim, who resides at the [facility] who is had about a 6-week decline in her functional status. She has had no fevers or reported illness. She was brought to the emergency department as she is now having more difficulty caring for herself and mobilizing. Work-up in the emergency department was concerning for urinary tract infection with dehydration. She was admitted to hospitalist services for further management and placement on discharge. She received one dose of imipenem for complicated UTI based on previous culture. this culture did grow less than 10,000 colony of pseudomonas, which was sensitive. She remained afebrile and hemodynamically stable, but with behaviors issues including refusing care, medications, and food. It is believed that her symptoms are d/t advancing dementia with acute delirium out of her usual environment. as we are unable to obtain an review of systems d/t advanced dementia, we trial a low dose fentanyl patch which did improve her behaviors. case management has been following and placement at the [facility] has been obtained. a repeat random urine yesterday shows no leuk or nitrite but was grossly contaminated so other findings are unlikely relevant. she has been covid tested for placement per routine and is negative. she is being discharged to the [facility]. case discussed with DR Limon. Home Meds and New Rx's Prescriptions: New amlodipine 10 mg Tablet 10 mg PO DAILY Qty: 30 RF: 0 fentanyl 12 mcg/hr Patch 72 Hour 12 mcg transdermal Q72H Qty: 2 RF: 0 Continued metformin 500 mg tablet 1,000 mg PO BID RF: 0 atorvastatin 80 mg tablet 80 mg PO DAILY RF: 0 esomeprazole magnesium [Nexium] 40 mg capsule,delayed release(DR/EC) 40 mg PO DAILY RF: 0 aspirin 81 mg tablet 81 mg PO DAILY RF: 0 Discharge Instructions Instructions: Dementia (ED) Referrals: Edna Cortez [Primary Care Provider] - Activity:: Activity as Tolerated Equipment/Supplies:: No Equipment Needed Diet:: Carb Counting Discharge Orders Discharge Orders: Discharge Order (Routine); Ordered 02/07/20 Ordered By: Trang Arenas DS: Summary Status at Discharge Functional status at discharge: uses cane/walker Overall status at discharge: patient is not back to baseline Mental Status: other Speech and Movement: speech and movement normal and agitated (at times, can be agressive) Mood: other Affect: labile affect Exam Const General: cooperative, healthy appearing, comfortable, no acute distress, anxious, combative and frail appearing Nutritional Appearance: average body habitus and thin Orientation: alert, awake, oriented to person, oriented to place, confused and other (able to provide some accurate history) Limitations: behavioral limitations and other limitations (advanced dementia) [facility] Head: normal to inspection, normocephalic and atraumatic Mouth: oral mucosae normal and moist mucous membranes abnormal (slightly dry) Resp Effort & Inspection: normal respiratory effort Auscultation: clear to auscultation bilaterally Cardio Rate: regular rate Rhythm: regular rhythm GI Inspection: normal to inspection Palpation: soft Auscultation: normal bowel sounds Skin General skin exam: no rashes or lesions noted Neuro General: patient alert, patient awake, patient oriented x3, moves all extremities, no focal motor deficits and patient confused Cognition: abnormal cognition (cognitive impairment) Speech: speech normal Gait: shuffling and gait assisted Method: walker Motor: muscle tone normal throughout Extrem General: no pedal edema Psych Appearance: disheveled Mental Status: other Speech and Movement: speech and movement normal and agitated (at times, can be agressive) Mood: other Affect: labile affect Attitude: belligerent Thought Process: other (demented) Insight: poor Judgment: poor DS: Data Vitals/I&O Vitals and I&O: Vital Signs Temperature 36.2 C L 02/07/20 07:58 Temperature Source Tympanic 02/07/20 07:58 Pulse 84 02/07/20 07:58 Pulse Rhythm Regular 02/07/20 08:40 Pulse 58 L 02/01/20 12:31 Respiratory Rate 20 02/07/20 07:58 Respiratory Effort Non-Labored 02/07/20 08:40 Respiratory Depth Normal 02/07/20 08:40 Respiratory Pattern Normal 02/07/20 08:40 Blood Pressure 178/90 H 02/07/20 07:58 Blood Pressure Mean 83 02/01/20 12:31 Pulse Oximetry 97 02/07/20 07:58 Oxygen Delivery Method Room Air 02/07/20 07:58 Oxygen Flow Rate 0 02/07/20 07:58 Pain Level 0 02/07/20 07:58 Comment 02/07/20 07:58 Intake & Output 02/06/20 02/06/20 02/07/20 11:59 23:59 11:59 Intake Total 60 / 180 120 / 180 480 / 480 Output Total 300 / 300 200 / 200 Balance 60 / -120 -180 / -120 280 / 280 Intake: Oral 60 / 180 120 / 180 480 / 480 Output: Urine 300 / 300 200 / 200 Other: Urine Color Yellow Yellow Yellow Urine Appearance Clear Clear Clear Urine Odor Strong Strong Comment Changed pt's brief, her brief was very heavy with urine. Voiding Methods Diaper Diaper Toilet Incontinent Data Completed and Pending Labs on day of discharge: Labs from last 24 hours 02/06/20 02/06/20 02/06/20 17:50 06:50 05:35 WBC Cancelled RBC Cancelled Hgb Cancelled Hct Cancelled MCV Cancelled MCH Cancelled MCHC Cancelled RDW Cancelled Plt Count Cancelled MPV Cancelled Urine Color Yellow Urine Clarity Clear Urine pH 5.5 Ur Specific [place] >= 1.030 H Urine Protein >=300 H Urine Ketones Trace H Urine Blood Trace-intact H Urine Nitrite Negative Urine Bilirubin Negative Urine Urobilinogen 0.2 Ur Leukocyte Esterase Negative Urine RBC 5-10 H Urine WBC 20-50 H Ur Epithelial Cells Moderate Urine Crystals Negative Urine Bacteria Few Urine Casts Negative Urine Mucus Negative Urine Other Negative Ur Culture Indicated? No/sq. contamination Urine Glucose 500 H COVID-19 PCR Negative Nasopharyn COVID-19 PCR Not Applicable Ref Test Perform Site [facility] Medical History (Updated 02/06/20 @ 15:39 by DANIEL Holloway) Cataracts, bilateral Cerebral amyloid angiopathy Diabetes Facial laceration Fall (on) (from) other stairs and steps, initial encounter Legally blind in right eye, as defined in [place] Memory loss Peripheral neuropathy retinal issue left eye Subarachnoid hemorrhage Surgical History Appendectomy EGD - IV Sedation (02/03/16) Extraction of cataract bilateral Social History Smoking/Tobacco Use Status: Never Alcohol Intake: never Drug use: Never Household members: none Housing: apartment
--- NOTE | 2020-02-07 13:20 | PDOC.CMDIS ---
LACE Index Scoring Tool - Questions: Length of Stay (in days): 4 - 6 Acuity (Admit via E.D.?): Yes Comorbidities: Diabetes w/o Complication E.D. Visits: 2 - Answers: Total Score: 10 Risk of Readmission: High Risk Care Management Discharge Reason for Hospitalization: UTI, Acute Kidney Injury, Hypomagnesium, Hyperkalemia Discharge Plan: Suni will be transferred to the [facility] for ongoing rehabiliation. Undetermined if she will remain at the [facility] term at this time. She will transport via [facility], coordinated by this designer writer. Patient/Family Education Needs: Review discharge instructions, discuss Ask Me Three. Services Needed at Discharge: [facility] Facility ([facility] ), Transportation ([facility])
--- NOTE | 2020-02-08 07:20 | OT.INDS ---
Date of service: 02/08/20 Time of Service: 07:20 Occupational Therapy Notes Occupational Therapy Inpatient Discharge Summary Date: 02/08/20 Dates of Service: 02/05/20-02/07/20 Referring Doctor:Trang Arenas NP OT Orders: Non-Urgent Precautions: Fall, Standard, DNR/DNI *This document serves as a summary of care, no skilled OT services provided for this documentation* PATIENT PROFILE/ADMITTING DIAGNOSIS: Pt is a 74 year old female who presented to the ER with c/o UTI, acute kidney injury, hyperkalemia, hypomagnesemia, and Type II DM. She is currently admitted to [facility]. Past Medical History- Medical History (Updated 02/01/20 @ 12:16 by Trang Arenas NP) Cataracts, bilateral Cerebral amyloid angiopathy Diabetes Facial laceration Fall (on) (from) other stairs and steps, initial encounter Legally blind in right eye, as defined in [place] Memory loss Peripheral neuropathy Retinal issue left eye Subarachnoid hemorrhage Surgical History Appendectomy EGD - IV Sedation (02/03/16) Extraction of cataract bilateral Social History/Home Situation: Pt is a [place] [facility] [place] resident [facility] the [facility]. She states that she has (A) with her ADLs and that some times she uses a cane and others she doesn't. Pt is poor historian which makes it hard to establish pts baseline level of function. She at one point states that she requires a lot of (A) and at others she notes that she would like as much (I) in her ADL routines as possible. Equipment owned/DME: Met per [facility] SUBJECTIVE: NT OBJECTIVE: ROM: RUE AROM WFL L UE AROM WFL STRENGTH: RUE Shoulder flexion 3-/5, bicep/tricep 3/5, combat systems engineer is weak and symmetrical LUE Shoulder flexion 3-/5, bicep/tricep 4/5, combat systems engineer is weak and symmetrical SENSATION: Intact (B) UE FUNCTIONAL MOBILITY/ADLS: BATHING Sitting in chair (I) with UE/LE, standing at sink with FWW and step by step instructions (I) with face, (B) UE and abdomen DRESSING sitting in chair with mod vc Dressing UE Pt was able to don and doff sweatshirt with min (A) and mod vc Dressing LE Sitting in chair she was able to don and doff her socks (I), (I) don and doff underwear for toileting routine. GROOMING Sitting in chair with mod vc (I) with brushing hair, standing at sink min-mod (A) with brushing teeth TOILETING on toilet with min vc (I) with toileting hygiene EATING Sitting in chair (I) with food to mouth, no issues with swallowing or opening/closing containers. BALANCE: Static sitting Normal Dynamic Sitting Good Static standing Good Dynamic standing Good ASSESSMENT: Patient is a 74-year-old female referred to occupational therapy services with diagnosis of UTI, acute kidney injury, hyperkalemia, hypomagnesemia, Type II DM. Pt was seen for 3 skilled OT sessions, she was always an active participant in the OT sessions and agreeable to increased functional (I). She was a poor historian and often very confused at times which did limit her functional (I). She made significant improvements in her ADLs including standing at the sink. She was able to perform her ADLs with (I) but did require mod vc and sometimes even step by step instructions. Pt was discharged on 02/07/20 and medically cleared per MD. GOALS 1. Transfers with FWW (S)- not met 2. Dressing sitting in chair (I) with shirt and pants- not met required min (A) and mod vc 3. Bathing sitting in chair pt will be (I) with UE/LE- met 4. Toileting on toilet with min (A)- met 5. Eating (I)- met PLAN OF CARE/TREATMENT PLAN: Pt was discharged and medically cleared per MD on 02/07/20. DISCHARGE RECOMMENDATIONS Based on pts current level of function and decreased cognitive function, decreased safety awareness and decreased functional (I) in her ADL/IADL routines OT recommends that pt go to SNF vs. LTC. TREATMENT TIME/MINUTES/CODES N/A Lindsey Miller OTR/L [facility]
--- NOTE | 2020-02-08 12:38 | PT.INDS ---
Date of service: 02/08/20 Time of Service: 12:38 PT Notes Visit Reasons: URINARY TRACT INFECTION, ACUTE KIDNEY INJURY, HYPE PT Inpatient Discharge Summary Date: 02/08/2020 DAtes of Service:02/01/2020 through 02/06/2020 Referring Doctor: Trang Arenas NP PT Orders: PT CONSULT: Eval/treat Precautions: Fall. Standard. Activity as tolerated. Patient Profile/Admitting Diagnosis: Suni 74-year-old female who present to the ED today with worsening of mental status and progressive difficulty with ADL performance. Patient is diagnosed with complicated urinary tract infection, acute kidney injury, hyperkalemia, hypomagnesemia, type 2 diabetes mellitus, and ambulatory dysfunction. PMHX: Medical History (Updated 02/01/20 @ 12:16 by Trang Arenas NP) Cataracts, bilateral Cerebral amyloid angiopathy Diabetes Facial laceration Fall (on) (from) other stairs and steps, initial encounter Legally blind in right eye, as defined in [place] Memory loss Peripheral neuropathy Retinal issue left eye Subarachnoid hemorrhage Surgical History Appendectomy EGD - IV Sedation (02/03/16) Extraction of cataract bilateral Social History/Home Situation: Long-term care resident [facility] the [facility] Equipment Owned/DME: Front-wheeled walker Subjective: NT. See most recent SCALING MACHINE OPERATOR notes. Objective: General Observation: NT. See most recent SCALING MACHINE OPERATOR notes. Mental Status: NT. See most recent SCALING MACHINE OPERATOR notes. Pain: NT. See most recent SCALING MACHINE OPERATOR notes. ROM: Right Upper Extremity: Shoulder Flexion WFL. Shoulder abduction WFL. Elbow flexion WFL. Wrist flexion WFL. Opening and closing of hand WFL. Left Upper Extremity: Shoulder Flexion WFL. Shoulder abduction WFL. Elbow flexion WFL. Wrist flexion WFL. Opening and closing of hand WFL. Right Lower Extremity: Hip flexion WFL. Hip abduction WFL. Knee flexion WFL. Ankle dorsiflexion WFL. Ankle plantarflexion WFL. Left Lower Extremity: Hip flexion WFL. Hip abduction WFL. Knee flexion WFL. Ankle dorsiflexion WFL. Ankle plantarflexion WFL. Strength: Right Upper Extremity: Shoulder flexors 4/5. Shoulder abductors 4/5. Elbow flexors 4/5. Elbow extensors 4/5. Quality Assurance Analyst strong. Left Upper Extremity: Shoulder flexors 4/5. Shoulder abductors 4/5. Elbow flexors 4/5. Elbow extensors 4/5. Quality Assurance Analyst strong. Right Lower Extremity: Hip flexors 3+/5. Hip abductors 3+/5. Knee flexors 4-/5. Knee extensors 3+/5. Ankle dorsiflexors 4/5. Ankle plantarflexors 4/5. Left Lower Extremity: Hip flexors 3+/5. Hip abductors 3+/5. Knee flexors 4-/5. Knee extensors 3+/5. Ankle dorsiflexors 4/5. Ankle plantarflexors 4/5. Bed Mobility/Transfers: Rolling SBA Supine to sit contact-guard assist, verbal cues needed for safety Sit to supine contact-guard assist, verbal cues needed for safety Sit to stand contact-guard assist, verbal cues needed for safety and walker management Stand to sit contact-guard assist to moderate assist depending on level of mentation, verbal cues needed for safety and walker management Bed to chair contact-guard assist to moderate assist depending on level of mentation, verbal cues needed for safety and walker management Chair to bed contact-guard assist to moderate assist depending on level of mentation, verbal cues needed for safety and walker management Gait: 10 steps using FWW with CGA and moderate verbal cueing for directions and safety. Decreased gait speed. In a session a little alter after patient ate her meal, she only was agreeable to walking back to bed despite encouragement to go for a longer walk. Balance: Static Sitting: Normal Dynamic Sitting: Normal Static Standing: Fair Dynamic Standing: Fair Assessment: Suni continues to demonstrate increased confusion, functional mobility decline requiring use of front wheeled walker and verbal cueing of another for safety, faculty with walking, and impairment with balance due to admitting diagnoses. Suni 74-year-old female who present to the ED today with worsening of mental status and progressive difficulty with ADL performance. Patient is diagnosed with complicated urinary tract infection, acute kidney injury, hyperkalemia, hypomagnesemia, type 2 diabetes mellitus, and ambulatory dysfunction. Patient continues to present with clinical signs and symptoms consistent with current/admitting diagnoses that have resulted to mobility limitations, gait instability, generalized weakness, and impairment of motor control as demonstrated by the following impairment level findings: 1. Decreased strength to B LE major muscle groups 2. Impaired sitting/standing balance 3. Impaired activity tolerance Impairments are continuing to contribute to the following functional limitations: 1. Increased dependence with transfers 2. Inability to safely ambulate without assistive device and physical assistance 3. Increase completion time for mobility ADL performance 4. Increased fall risk 5. Inability to negotiate steps alone safely Goals: Goals X1 week 1. Supine-Sit independent NOT MET 2. Sit-Supine independent NOT MET 3. Sit-Stand independent NOT MET 4. Stand-Sit independent NOT MET 5. Bed-Chair supervision NOT MET 6. Chair-Bed supervision NOT MET 7. Supervision gait on level surface with use of least restrictive device for at least 300 feet without report of pain nor dyspnea NOT MET 8. Supervision stair negotiation while holding onto bilateral rails for at least 10 steps without report of pain nor dyspnea NOT MET 9. Independent with home exercise program NOT MET 10. Good static and dynamic standing balance/tolerance NOT MET DISCHARGE RECOMMENDATIONS: Discharge to the [facility]. TREATMENT CODE/TIME: AK Thank you for the opportunity to participate in the care of this patient. Linda Rodriguez PT, DPT, CLT [facility] [place], [place]
== END 2020-02-07 12:35 | disposition home or self-care (01) | DRG 884 ==
LOC: ER 10:06 → MS 13:30
PROVIDERS: Internal Medicine; Nurse Practitioner Acute Care; Nurse Practitioner Family; Admitting Provider Family Medicine; Emergency Provider Physician Assistant; PCP Nurse Practitioner; Visit Provider Family Medicine
DX: F01.51 Vascular dementia, unspecified severity, with behavioral disturbance (principal); N17.9 Acute kidney failure, unspecified; E85.4 Organ-limited amyloidosis; R26.2 Difficulty in walking, not elsewhere classified; E87.5 Hyperkalemia; E83.42 Hypomagnesemia; E86.0 Dehydration; I68.0 Cerebral amyloid angiopathy; H54.8 Legal blindness, as defined in USA; E11.42 Type 2 diabetes mellitus with diabetic polyneuropathy
CPT/HCPCS: 36415; 76770; 80048; 80053; 85027; 87077; 93005; 96361; 96365; 96366; 96368; 97163; 97167; 97530; 97535; 99223; 99232; 99233; 99239; 99285; U0003; 70450; 71046; 81003; 81015; 83735; 84484; 85025; 87086; 87186; 93010; J0743; J1200; J1630; J1644; J2060; J3475

== ENCOUNTER 2020-07-07 13:55 | Emergency (ER) | payer MEDICARE, MEDICAID, SELFPAY ==
[2020-07-07] VITALS (44 sets, daily range): BP systolic 124–184; BP diastolic 70–93; PULSE 84–117; RESP 11–21; TEMP 36.3; O2SAT 95–99
--- NOTE | 2020-07-07 14:00 | RT.EKG_ITS ---
APPROVED REPORT Exam: Resting ECG Patient Location: E HR:91 bpm ECG Measurements Heart Rate 91 AXIS OH 145 P 58 QRSd 102 QRS 72 QT 375 T 267 QTc 463 Conclusion Sinus rhythm...normal P axis, V-rate 60- 99 LVH with secondary repolarization abnormality...multi-LVH criteria, abnrm ST-T
[2020-07-07] MEDS: Ondansetron 4 MG/2 ML VIAL (14:01)
--- NOTE | 2020-07-07 14:03 | W.ED.GENAD ---
Discharge Plan Disposition Patient Disposition: LEVEL III [facility] Condition: Improving Discharge Details Clinical Impression: UTI (urinary tract infection), Diabetes Primary Care Provider: Edna Cortez ED Provider: Lambert Hoffman Home Meds and New Rx's Prescriptions: Continued metformin 500 mg tablet 500 mg PO BID RF: 0 atorvastatin 80 mg tablet 80 mg PO DAILY RF: 0 esomeprazole magnesium [Nexium] 40 mg capsule,delayed release(DR/EC) 40 mg PO DAILY RF: 0 aspirin 81 mg tablet 81 mg PO DAILY RF: 0 Discharge Instructions Additional Instructions: I discussed your case and findings with both your Sister Megan as well as Dr. Encarnacion this evening. You were given a dose of ceftriaxone 1 g in the emergency department. You should continue antibiotics tomorrow as ordered by Dr. Harrsi. Your wishes had been to focus on comfort which we will continue to honor. Medical Decision Making 75-year-old female presents from the [facility] where she is reported to have weakness, recent constipation, now with nausea and vomiting. She arrives to the ER 149/91, pulse 97, afebrile with a temp of 36.3. 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 She has continually repeated that she wishes to and has been refusing her medications. Broad differential diagnosis considered including electrolyte abnormality, dehydration, bowel obstruction. Patient IV access established, screening labs obtained and she is referred for CT imaging. Labs: White count of 20, hematocrit 45, platelets 366. Sodium 138, potassium 4.9, BUN 36, creatinine 1.4, glucose 641, anion gap 17. LFTs are unremarkable and troponin and lipase are within normal limits. UA consistent with urinary tract infection CT images reveal no evidence of bowel obstruction. There is layering hyperdense material in the gallbladder lumen as well as a 5 x 4 mm intraluminal gallstone. There is no dilatation or edematous changes. The urinary bladder is distended. No evidence of sigmoid diverticulitis. I discussed the case with the patient's primary care physician Dr. Fallon, as well as her Sister Anabella who is the patient's power of detail assembler. We have agreed that the patient has specifically noted her choice that she wishes to focus on comfort measures and does not wish to be transported to the hospital. As she has already had IV access, we will administer a dose of ceftriaxone. Patient will be discharged back to the [facility]. HPI General Mode of arrival: ambulatory. Date/Time Provider Initiated Documentation: 07/07/20 14:51. Limitations to Documentation: no limitations. Information obtained by: patient. History of Present Illness 75 year old F presents to the emergency department with the chief complaint of Vomiting, elevated glucose. Weakness., described as moderate, Quality is described as dull, and is localized to the abdomen. Patient reports no radiation. Patient started experiencing this hour(s) and it has been intermittent. No relieving factors improve symptom(s), No exacerbating factors reported . Patient notes weakness; denies fever/chills. Patient did receive the following treatments prior to arrival, none Related Data Home Medications Medication Instructions Recorded Confirmed aspirin 81 mg tablet 81 mg PO DAILY 07/05/18 07/07/20 atorvastatin 80 mg tablet 80 mg PO DAILY 07/05/18 07/07/20 esomeprazole magnesium 40 mg 40 mg PO DAILY 07/05/18 07/07/20 capsule,delayed release metformin 500 mg tablet 500 mg PO BID tab 09/14/18 07/07/20 Allergies Allergy/AdvReac Type Severity Reaction Status Date / Time No Known Allergies Allergy Unverified 01/04/19 08:39 General Stated Complaint: GenMedical SHARMIN: 3 Review of Systems Narrative: No report of fever. Lethargic and weak. Constipated with hard stool balls. Vomiting today. [facility] Medical History (Updated 07/07/20 @ 18:27 by Lambert Hoffman MD) Cataracts, bilateral Cerebral amyloid angiopathy Diabetes Facial laceration Fall (on) (from) other stairs and steps, initial encounter Legally blind in right eye, as defined in [place] Memory loss Peripheral neuropathy retinal issue left eye Subarachnoid hemorrhage Surgical History Appendectomy EGD - IV Sedation (02/03/16) Extraction of cataract bilateral Social History Smoking/Tobacco Use Status: Never Smoking risk assessment performed?: Yes Alcohol Intake: never Drug use: Never Household members: none Housing: apartment Additional Social history: Unable to assess patient confused. Exam Narrative Exam Narrative: GEN: awake, alert, oriented 3. Pleasant, well groomed, interactive. HEAD: Normocephalic, atraumatic ENT: Mucous membranes dry, oropharynx unremarkable, External ear exam unremarkable EYES: PERRL, EOMI NECK: Full ROM, no LIZBET, no menigismus CHEST/RESP: Nontender, clear to auscultation bilateral, no wheeze/rhonchi/rales CARDIOVASCULAR: RRR, no murmur, rub zoe. 2+ Rad pulse bilateral ABDOMEN: Soft, no significant tenderness and no rebound, no mass. +Bowel sounds EXT: Full ROM, no edema, no rash Neuro: Grossly normal neurologic exam, conversant, interactive. Psych: Speech fluent, thoughts congruent, affect normal Course Vital Signs Vital signs: Vital Signs Temperature 36.3 C L 07/07/20 13:51 Pulse 97 H 07/07/20 13:51 Respiratory Rate 19 07/07/20 13:51 Blood Pressure 149/91 H 07/07/20 13:51 Pulse Oximetry 98 07/07/20 13:51 Temperature 36.3 C L 07/07/20 13:51 Temperature Source Skin 07/07/20 13:51 Pulse 97 H 07/07/20 13:51 Respiratory Rate 19 07/07/20 13:51 Respiratory Effort Non-Labored 07/07/20 13:56 Blood Pressure 149/91 H 07/07/20 13:51 Blood Pressure Position Sitting 07/07/20 13:51 Pulse Oximetry 98 07/07/20 13:51 Oxygen Delivery Method Room Air 07/07/20 13:51 Oxygen Flow Rate 0 07/07/20 13:51
[2020-07-07 14:16] LABS: Abs Immature Grans 0.14 10^3/uL (0.0-0.06); Basophils % 0.3; HCT 45.6 % (36.0-46.0); HGB 14.8 g/dL (11.2-15.7); Immature Grans % 0.7; Lymphocytes % 4.5; MCH 31.8 pg (27.0-33.0); MCHC 32.5 % (32.0-36.0); MCV 97.9 fL (80-95); MPV 11.6 fL (8.0-11.0); Monocytes % 5.3; Neutrophils % 89.2; Nucleated RBC 0 %; Platelet Count 366 10^3/uL (130-400); RBC 4.66 10^6/uL (3.93-5.22); RDW 12.1 % (11.7-14.6); RDW-SD 43.6 fL; WBC 20.08 10^3/uL (4.4-10.8)
[2020-07-07 14:28] LABS: Absolute Basophil Count 0.06 10^3/uL (0.0-0.2); Absolute Monocyte Count 1.06 10^3/uL (0.1-0.8); Absolute Neutrophil Count 17.91 10^3/uL (1.2-6.7)
[2020-07-07 15:44] LABS: ALT 31 U/L (14-59); AST 8 U/L (15-37); Albumin 3.7 g/dL (3.4-5.0); Alkaline Phosphatase 65 U/L (46-116); Anion Gap 17.4 mmol/L (3-11); BUN 36 mg/dL (7-18); CO2 23.6 mmol/L (21.0-32.0); CREATININE 1.4 mg/dL (0.55-1.02); Chloride 97 mmol/L (98-107); Estimated GFR 36.56 (mL/min/1.73m2); Lipase 159 U/L (73-393); Magnesium 2.6 mg/dL (1.8-2.4); Potassium 4.9 mmol/L (3.5-5.1); Sodium 138 mmol/L (136-145); Troponin I < 0.05 ng/mL (<0.06)
[2020-07-07 15:53] LABS: Calcium 10.1 mg/dL (8.5-10.1); Glucose 641 mg/dL (74-106)
--- NOTE | 2020-07-07 16:15 | DI.CT_ITS ---
EXAM: CT ABDOMEN PELVIS WO CLINICAL HISTORY: feculent vomiting. TECHNIQUE: Imaging Protocol: Axial computed tomography images with coronal and sagittal reformatted images were created and reviewed CONTRAST MATERIAL: Intravenous: none Oral: None COMPARISON: No exams were available for comparison FINDINGS: VISUALIZED LUNG BASES: No nodules nor pleural effusions evident. ABDOMEN: There is no ascites. LIVER: There are no obvious focal hepatic lesions evident of this noninfused study. GALLBLADDER/BILIARY: There is layering hyperdense material in the gallbladder lumen as well as a dist inct 5 x 4 millimeter gallstone within the layering hyperdense material. The gallbladder wall is not edematous. There is no pericholecystic fluid. The CBD is not dilated. There is no obvious calculu s in the CBD. PANCREAS: No evidence of obvious pancreatic mass on this non few study periods there are pancreatic c alcifications noted which may or may be not related to the splenic artery. There is no peripancreati c fluid. SPLEEN: Spleen is not enlarged. No obvious intrasplenic lesions. ADRENALS: There are no significant adrenal masses. KIDNEYS:Left kidney appears unremarkable. Tiny punctate calcification medial to the right kidney is most probably vascular. The right ureter is seen is a separate nondilated structure independent of t his calcification. The urinary bladder is distended and contains air, possibly related to recent instrumentation. No ob vious mass in the urinary bladder.. ABDOMINAL AORTA: Abdominal aorta is not enlarged and there is no [id number] adenopat hy. ABDOMINAL WALL/GI: No evidence of significant anterior abdominal wall hernia. No bowel obstruction. PELVIS: LYMPH NODES: There is no intrapelvic nor inguinal adenopathy. GI: No evidence of obvious appendicitis.Abundant fecal material in the rectum. No obstruction seen a t this level. No obvious diverticulitis. URINARY BLADDER: Distended and contains air. No obvious mass REPRODUCTIVE: Age-appropriate. No free fluid in the pelvis OSSEOUS: No significant osseous lesions. No fractures evident. Schmorl's nodes invagination inferior endplate of L2 is incidentally noted. IMPRESSION: 1. There is layering hyperdense material in the gallbladder lumen as well as a 5 x 4 millimeter intra luminal gallstone floating within this hyperdense fluid. The gallbladder wall does not appear edemat ous. There is no dilatation of the biliary tree, both intra and extrahepatic. 2. The urinary bladder is distended and contains air-gas, possibly related to recent instrumentation such as Juan catheter placement. There does not appear to be evidence of obvious acute sigmoid dive rticulitis (which can cause gas in the urinary bladder due to fistulous communication). Report called by myself to ER physician. RADIATION DOSE DELIVERED: 733.43mGy.cm Total DLP DATA REPOSITORY: All CT scans at this facility are submitted to the National Radiology Data Registry (NRDR) Dose Index Registry (DIR) with the [employer] [employer] (ACR). RADIATION OPTIMIZATION: All CT scans at this facility use at least one of these dose optimization te chniques: automated exposure control; mA and/or kV adjustment per patient size (includes targeted exa ms where dose is matched to clinical indication); or iterative reconstruction.
--- NOTE | 2020-07-07 16:56 | NUR.NOTE ---
Nursing Note: repeat BGL 551. Second liter of fluid ordered by ED provider.
[2020-07-07] MEDS: Normal Saline 1,000 ML 1000 ML IV (16:58)
[2020-07-07 17:58] LABS: Bilirubin Negative (Negative); Blood Trace-intact (Negative); Clarity Cloudy (Clear); Glucose 500 mg/dL (Negative); Ketones 40 mg/dL (Negative); Leukocyte Esterase Trace (Negative); Nitrite Negative (Negative); Urobilinogen 0.2 EU/dL (Up TO 0.2)
[2020-07-07 18:06] LABS: Bacteria Many HPF (Negative); Crystals Negative HPF (Negative); Epithelial Cells Rare HPF (Negative)
[2020-07-07 18:07] LABS: C & S Indicated? Yes; Casts Negative LPF (Negative); Mucus Moderate (Negative)
--- NOTE | 2020-07-07 18:12 | DI.VRAD_ITS ---
PROCEDURE INFORMATION: Exam: CT Abdomen And Pelvis Without Contrast Exam date and time: 07/07/2020 4:17 PM Age: 75 years old Clinical indication: Other: Feculent vomiting TECHNIQUE: Imaging protocol: Computed tomography of the abdomen and pelvis without contrast. COMPARISON: CR XR pelvis AP 10/13/2018 1:29 PM FINDINGS: Liver: Normal. No mass. Gallbladder and bile ducts: Sludge versus numerous small stones are noted to layer within the dependent portion of the gallbladder. No gallbladder wall thickening is seen. Pancreas: Normal. No ductal dilation. Spleen: Normal. No splenomegaly. Adrenal glands: Normal. No mass. Kidneys and ureters: Normal. No hydronephrosis. Stomach and bowel: The wall of the rectum appears thickened with a large amount of retained stool in the rectum. Appendix: No evidence of appendicitis. Intraperitoneal space: Unremarkable. No free air. No significant fluid collection. Vasculature: The aorta demonstrates moderate atherosclerotic calcification. Lymph nodes: Unremarkable. No enlarged lymph nodes. Urinary bladder: The urinary bladder appears distended and contains gas in the nondependent aspect of the lumen. The urinary bladder appears normal. Reproductive: No adnexal masses are seen. The uterus appears normal. No adnexal masses are seen. Bones/joints: Unremarkable. No acute fracture. Soft tissues: Unremarkable. IMPRESSION: 1. Sludge versus multiple small stones within the gallbladder. 2. Rectal wall thickening may be inflammatory or neoplastic in origin. 3. Large amount of retained stool in the rectum. Fecal impaction is suspected. 4. Gas in the urinary bladder. This is most commonly secondary to recent catheterization. However, if this does not apply, consider colovesical fistula or cystitis with gas-forming organism. Dictated and Authenticated by: Livan Corley MD. Ordering:ELOISA Verdin MD
[2020-07-07] MEDS: cefTRIAXone 1 GM/50 ML BAG IVPB (18:38)
--- NOTE | 2020-07-07 19:20 | NUR.NOTE ---
Nursing Note: Patient incontinent of urine, janelle care done, new pull up on and paper pants on. I discussed rechecking patients blood sugar prior to discharge with Dr. Hoffman and he does not want one done at this time. Patient has been refusing her medication x couple weeks.
== END 2020-07-07 19:20 | disposition designated cancer center or children's hospital (05) ==
PROVIDERS: Emergency Provider Emergency Medicine; PCP Nurse Practitioner
DX: N39.0 Urinary tract infection, site not specified (principal); E11.9 Type 2 diabetes mellitus without complications; Z79.84 Long term (current) use of oral hypoglycemic drugs
CPT/HCPCS: 36416; 80053; 82962; 83690; 87077; 93005; 96361; 96365; 99285; 74176; 81003; 81015; 83735; 84484; 85025; 87086; 87186; 93010; 99284; J0696; J2405